=== PATIENT | male | born 1985 | race African-American/Black ===

== ENCOUNTER 2017-03-31 12:17 | Emergency (ER) | payer MEDICAID ==
[~2017-03-31] VITALS: Ht 190.5 cm; Wt 118.0 kg
[~2017-03-31 12:17] MED LIST: GABA-531 PO; INSU3INS6 SUBCUT; LISI-604 PO; METF500T4 PO; rocephin IV
[2017-03-31 12:24] VITALS: BP 165/92
== END 2017-03-31 19:30 | disposition left against medical advice (07) ==
LOC: ER 12:34
DX: Z53.21 Procedure and treatment not carried out due to patient leaving prior to being seen by health care provider (principal); E11.9 Type 2 diabetes mellitus without complications; I10 Essential (primary) hypertension
CPT/HCPCS: 82962

== ENCOUNTER 2019-04-18 08:03 | Inpatient (IN) | payer MEDICARE, MEDICAID ==
[~2019-04-18] VITALS: Ht 175.3 cm; Wt 112.0 kg
[~2019-04-18 08:03] MED LIST changes: +METF-414 PO; -METF500T4 PO
[2019-04-18] MEDS ORDERED: ACETAMINOPHEN 325MG TABLET PO STA (08:31)
[2019-04-18] MEDS ORDERED: SODIUM CHLORIDE 0.9% 1000ML BAG (SEPSIS BOLUS) IV ONE (08:45)
[2019-04-18] MEDS ORDERED: VANCOMYCIN 1 G PREMIX 200 ML IV ONE (08:45)
[2019-04-18] MEDS ORDERED: PIPERACILLIN/TAZ 3.375G PREMIX 50 ML IV ONE (08:45)
[2019-04-18 08:56] LABS: HEMATOCRIT. 23.3 % (42.0-52.0); HEMOGLOBIN. 7.7 g/dL (14.0-18.0); MEAN CORPUSCULAR HEMOGLOBIN 26.8 pg (28.0-32.0); MEAN CORPUSCULAR VOLUME 80.7 fL (80.0-94.0); MEAN PLATELET VOLUME 8.2 fl (7.4-10.4); PLATELET 371 x1000/uL (130-400); RED BLOOD CELL COUNT 2.88 mill/uL (4.7-6.1); RED CELL DISTRIBUTION WIDTH 16.3 % (11.6-14.6)
[2019-04-18 08:58] LABS: CHLORIDE 105 mEq/L (98-107)
[2019-04-18] MEDS ORDERED: ACETAMINOPHEN 650MG/20.3ML UDC PO ONE (09:00)
[2019-04-18] MEDS ORDERED: MORPHINE SULFATE 4 MG/ML CPJ (NOT FOR IM USE) IV ONE ×2 (09:00→13:30)
[2019-04-18] MEDS ORDERED: ONDANSETRON HCL 4MG/2ML INJ IV ONE (09:00)
[2019-04-18 09:01] LABS: INR 1.3; PROTHROMBIN TIME 13.4 sec (9.6-11.0)
[2019-04-18 09:31] LABS: PLATELET ESTIMATE NORMAL
[2019-04-18 11:28] LABS: CLARITY URINE CLEAR (CLEAR); COLOR URINE YELLOW (YELLOW); KETONES URINE NEGATIVE (NEGATIVE); LEUKOCYTE ESTERASE URINE NEGATIVE (NEGATIVE); NITRITE URINE NEGATIVE (NEGATIVE); OCCULT BLOOD URINE 3+ (NEGATIVE); PH URINE 5.5 (4.5-8.0); PROTEIN URINE 3+ (NEGATIVE); UROBILINOGEN URINE 0.2 E.U./dL (0.2-1.0)
[2019-04-18] MEDS ORDERED: DOCUSATE SODIUM 100MG CAPSULE PO PRN (16:00)
[2019-04-18] MEDS ORDERED: ACETAMINOPHEN 325MG TABLET PO PRN (16:00)
[2019-04-18] MEDS ORDERED: GUAIFENESIN 200MG/10ML SUGAR FREE UDC PO PRN (16:00)
[2019-04-18] MEDS ORDERED: ACETAMINOPHEN 650MG SUPP PR PRN (16:00)
[2019-04-18] MEDS ORDERED: MAGNESIUM/ALUMINUM HYDROXIDE/SIMETHICONE 30ML UDC PO PRN (16:00)
[2019-04-18] MEDS ORDERED: PIPERACILLIN/TAZ 3.375G PREMIX 50 ML IV SCH (16:00)
[2019-04-18] MEDS ORDERED: NA PHOS,M-B/NA PHOS,DI-BA ENEMA 118ML PR PRN (16:00)
[2019-04-18] MEDS: DIPHENHYDRAMINE 50MG/ML VIAL IV PRN ×2 (16:59→21:03)
[2019-04-18] MEDS: ONDANSETRON HCL 4MG/2ML INJ IV PRN (16:59)
[2019-04-18] MEDS ORDERED: PIPERACILLIN/TAZ 3.375G PREMIX 50 ML IV NR (17:15)
[2019-04-18] MEDS ORDERED: MORPHINE SULFATE 2 MG/ML CPJ (NOT FOR IM USE) IV PRN (18:11)
[2019-04-18] MEDS ORDERED: HYDRALAZINE 20MG/ML VIAL IV PRN (18:12)
[2019-04-18] MEDS: METOCLOPRAMIDE HCL 10MG/2ML VIAL IV SCH (18:20)
[2019-04-18] MEDS: MORPHINE SULFATE 2 MG/ML CPJ (NOT FOR IM USE) IV PRN (21:03)
[2019-04-18] MEDS: CLONIDINE 0.1MG TABLET PO PRN (21:50)
[2019-04-18] MEDS ORDERED: LABETALOL 5MG/ML SYR 20 MG/4 ML SYRINGE IV PRN (23:30)
[2019-04-19] MEDS ORDERED: LABETALOL HCL 20MG/4ML CARPUJECT IV PRN (01:00)
[2019-04-19 03:40] VITALS: BP 181/103
[2019-04-19] MEDS: HYDRALAZINE 20MG/ML VIAL IV PRN (04:13)
[2019-04-19] MEDS: DIPHENHYDRAMINE 50MG/ML VIAL IV PRN ×3 (04:32→18:45)
[2019-04-19] MEDS: MORPHINE SULFATE 2 MG/ML CPJ (NOT FOR IM USE) IV PRN ×3 (04:33→18:39)
[2019-04-19] MEDS ORDERED: DEXTROSE 50% WATER 50ML SYRINGE IV PRN (05:00)
[2019-04-19] MEDS: SODIUM CHLORIDE 0.9% INJ 3ML FLUSH IVF SCH ×3 (06:00→21:46)
[2019-04-19] MEDS: PIPERACILLIN/TAZOBACTAM 3.375 G in DEXT 5% WATER 100 ML IV SCH ×3 (06:40→21:36)
[2019-04-19] MEDS: BLOOD SUGAR DIAGNOSTIC STRIP TEST SCH ×4 (06:40→21:46)
[2019-04-19] MEDS: METOCLOPRAMIDE HCL 10MG/2ML VIAL IV SCH ×3 (06:40→17:58)
[2019-04-19] MEDS: SODIUM CHLORIDE 0.45% 1,000 ML IV SCH ×2 (06:40→17:58)
[2019-04-19] MEDS: INSULIN LISPRO 100 UNITS/ML SUBCUT SCH ×4 (06:59→21:00)
[2019-04-19 08:00] VITALS: BP 153/91
[2019-04-19] MEDS ORDERED: VANCOMYCIN 1250MG in DEXTROSE 5% WATER 250ML IV SCH (08:00)
[2019-04-19] MEDS: FAMOTIDINE 20MG/2ML VIAL IV SCH (08:57)
[2019-04-19] MEDS: HYDROCODONE/ACETAMINOPHEN 5/325MG TABLET PO PRN ×3 (08:58→21:46)
[2019-04-19] MEDS ORDERED: VANCOMYCIN 1500MG in DEXTROSE 5% WATER 250ML IV SCH (10:00)
[2019-04-19] MEDS ORDERED: ALTEPLASE 2MG/VIAL ITC ONE (11:00)
[2019-04-19 11:56] LABS: BASOPHILS % 0.6 % (0.0-2.0); EOSINOPHILS % 1.1 % (0.0-5.0); HEMATOCRIT. 21.1 % (42.0-52.0); HEMOGLOBIN. 7.2 g/dL (14.0-18.0); LYMPHOCYTES % 10.3 % (20.0-50.0); MEAN CORPUSCULAR HEMOGLOBIN 27.4 pg (28.0-32.0); MEAN CORPUSCULAR VOLUME 80.4 fL (80.0-94.0); MEAN PLATELET VOLUME 7.7 fl (7.4-10.4); MONOCYTES % 10.1 % (2.0-8.0); NEUTROPHILS % 77.9 % (40.0-76.0); PLATELET 312 x1000/uL (130-400); RED BLOOD CELL COUNT 2.62 mill/uL (4.7-6.1); RED CELL DISTRIBUTION WIDTH 16.4 % (11.6-14.6)
[2019-04-19 12:00] VITALS: BP 155/88
[2019-04-19 12:04] LABS: CHLORIDE 108 mEq/L (98-107)
[2019-04-19 12:12] LABS: HDL CHOLESTEROL 20 mg/dL (40-59)
[2019-04-19 12:13] LABS: PHOSPHORUS 5.1 mg/dL (2.5-4.9)
[2019-04-19 12:14] LABS: LDL CHOLESTEROL 33 mg/dL (5-100)
[2019-04-19 16:00] VITALS: BP 169/93
[2019-04-19] MEDS: ONDANSETRON HCL 4MG/2ML INJ IV PRN (17:09)
[2019-04-19 20:00] VITALS: BP 142/79
[2019-04-20] VITALS (10 sets, daily range): BP systolic 134–198; BP diastolic 71–114
[2019-04-20] MEDS: METOCLOPRAMIDE HCL 10MG/2ML VIAL IV SCH ×5 (00:54→23:33)
[2019-04-20] MEDS: ONDANSETRON HCL 4MG/2ML INJ IV PRN (04:18)
[2019-04-20] MEDS: CLONIDINE 0.1MG TABLET PO PRN ×2 (04:19→14:08)
[2019-04-20] MEDS: MORPHINE SULFATE 2 MG/ML CPJ (NOT FOR IM USE) IV PRN ×5 (04:19→23:49)
[2019-04-20] MEDS: DIPHENHYDRAMINE 50MG/ML VIAL IV PRN ×4 (04:32→23:49)
[2019-04-20] MEDS: PIPERACILLIN/TAZOBACTAM 3.375 G in DEXT 5% WATER 100 ML IV SCH ×3 (05:32→23:33)
[2019-04-20] MEDS: SODIUM CHLORIDE 0.9% INJ 3ML FLUSH IVF SCH ×3 (05:32→23:34)
[2019-04-20] MEDS: INSULIN LISPRO 100 UNITS/ML SUBCUT SCH ×4 (06:55→20:50)
[2019-04-20] MEDS: BLOOD SUGAR DIAGNOSTIC STRIP TEST SCH ×4 (06:55→21:00)
[2019-04-20] MEDS: FAMOTIDINE 20MG/2ML VIAL IV SCH (08:36)
[2019-04-20] MEDS: HYDRALAZINE 20MG/ML VIAL IV PRN ×2 (08:38→23:49)
[2019-04-20] MEDS: SODIUM CHLORIDE 0.45% 1,000 ML IV SCH ×2 (08:42→23:33)
[2019-04-20 08:49] LABS: BASOPHILS % 0.7 % (0.0-2.0); LYMPHOCYTES % 14.2 % (20.0-50.0); MEAN CORPUSCULAR HEMOGLOBIN 27.4 pg (28.0-32.0); MEAN CORPUSCULAR VOLUME 80.7 fL (80.0-94.0); MEAN PLATELET VOLUME 8.2 fl (7.4-10.4); MONOCYTES % 9.8 % (2.0-8.0); NEUTROPHILS % 72.3 % (40.0-76.0); PLATELET 305 x1000/uL (130-400); RED BLOOD CELL COUNT 2.37 mill/uL (4.7-6.1); RED CELL DISTRIBUTION WIDTH 16.5 % (11.6-14.6)
[2019-04-20 08:52] LABS: HEMATOCRIT. 19.2 % (42.0-52.0); HEMOGLOBIN. 6.5 g/dL (14.0-18.0)
[2019-04-20 16:44] LABS: BASOPHILS % 0.7 % (0.0-2.0); EOSINOPHILS % 3.1 % (0.0-5.0); LYMPHOCYTES % 17.3 % (20.0-50.0); MEAN CORPUSCULAR HEMOGLOBIN 26.9 pg (28.0-32.0); MEAN CORPUSCULAR VOLUME 79.7 fL (80.0-94.0); MEAN PLATELET VOLUME 7.6 fl (7.4-10.4); MONOCYTES % 9.9 % (2.0-8.0); PLATELET 313 x1000/uL (130-400); RED BLOOD CELL COUNT 2.42 mill/uL (4.7-6.1); RED CELL DISTRIBUTION WIDTH 16.4 % (11.6-14.6)
[2019-04-20 16:47] LABS: HEMOGLOBIN. 6.5 g/dL (14.0-18.0)
[2019-04-20 16:48] LABS: HEMATOCRIT. 19.3 % (42.0-52.0)
[2019-04-20 16:50] LABS: CHLORIDE 106 mEq/L (98-107)
[2019-04-21] VITALS: BP 182/104
[2019-04-21 04:00] VITALS: BP 183/102
[2019-04-21] MEDS: PIPERACILLIN/TAZOBACTAM 3.375 G in DEXT 5% WATER 100 ML IV SCH ×2 (05:34→13:39)
[2019-04-21] MEDS: METOCLOPRAMIDE HCL 10MG/2ML VIAL IV SCH ×4 (05:34→23:40)
[2019-04-21] MEDS: HYDRALAZINE 20MG/ML VIAL IV PRN ×4 (05:34→23:49)
[2019-04-21] MEDS: MORPHINE SULFATE 2 MG/ML CPJ (NOT FOR IM USE) IV PRN ×5 (05:35→23:49)
[2019-04-21] MEDS: DIPHENHYDRAMINE 50MG/ML VIAL IV PRN ×3 (05:35→19:59)
[2019-04-21] MEDS: SODIUM CHLORIDE 0.9% INJ 3ML FLUSH IVF SCH ×3 (05:35→21:32)
[2019-04-21] MEDS: INSULIN LISPRO 100 UNITS/ML SUBCUT SCH ×4 (07:06→21:34)
[2019-04-21] MEDS: BLOOD SUGAR DIAGNOSTIC STRIP TEST SCH ×4 (07:06→20:05)
[2019-04-21 08:00] VITALS: BP 193/109
[2019-04-21] MEDS: FAMOTIDINE 20MG/2ML VIAL IV SCH (09:13)
[2019-04-21] MEDS: SODIUM CHLORIDE 0.45% 1,000 ML IV SCH ×2 (09:42→23:41)
[2019-04-21] MEDS: CLONIDINE 0.1MG TABLET PO PRN (10:18)
[2019-04-21 10:42] LABS: HEMATOCRIT 22.6 % (42.0-52.0); HEMOGLOBIN 7.7 g/dL (14.0-18.0); MEAN CORPUSCULAR HEMOGLOBIN 27.7 pg (28.0-32.0); MEAN CORPUSCULAR VOLUME 81.7 fL (80.0-94.0); PLATELET 318 x1000/uL (130-400); RED BLOOD CELL COUNT 2.77 mill/uL (4.7-6.1); RED CELL DISTRIBUTION WIDTH 16.1 % (11.6-14.6)
[2019-04-21 10:56] LABS: INR 1.1; PROTHROMBIN TIME 10.8 sec (9.6-11.0)
[2019-04-21 12:00] VITALS: BP 162/78
[2019-04-21] MEDS ORDERED: HYDRALAZINE HCL 50MG TABLET PO SCH (14:00)
[2019-04-21] MEDS: HYDROCODONE/ACETAMINOPHEN 5/325MG TABLET PO PRN (15:18)
[2019-04-21] MEDS: HYDRALAZINE HCL 50MG TABLET PO PRN (15:18)
[2019-04-21] MEDS ORDERED: VANCOMYCIN 1 G PREMIX 200 ML IV NR (16:00)
[2019-04-21] MEDS ORDERED: MEROPENEM 1000MG in NORMAL SALINE 100ML IV SCH (17:00)
[2019-04-21] MEDS: MEROPENEM 1000MG in NORMAL SALINE 100ML IV SCH (18:35)
[2019-04-21 20:00] VITALS: BP 144/81
[2019-04-22] VITALS: BP 167/92
[2019-04-22] MEDS: DIPHENHYDRAMINE 50MG/ML VIAL IV PRN ×3 (03:19→13:42)
[2019-04-22 04:00] VITALS: BP 173/89
[2019-04-22] MEDS: SODIUM CHLORIDE 0.9% INJ 3ML FLUSH IVF SCH (05:12)
[2019-04-22] MEDS: MORPHINE SULFATE 2 MG/ML CPJ (NOT FOR IM USE) IV PRN ×3 (05:14→13:42)
[2019-04-22] MEDS: METOCLOPRAMIDE HCL 10MG/2ML VIAL IV SCH ×2 (05:14→12:36)
[2019-04-22] MEDS: HYDRALAZINE HCL 50MG TABLET PO PRN (05:15)
[2019-04-22] MEDS: BLOOD SUGAR DIAGNOSTIC STRIP TEST SCH ×2 (06:29→12:31)
[2019-04-22] MEDS: INSULIN LISPRO 100 UNITS/ML SUBCUT SCH ×2 (07:50→12:31)
[2019-04-22 08:00] VITALS: BP 175/99
[2019-04-22] MEDS: MEROPENEM 1000MG in NORMAL SALINE 100ML IV SCH (09:16)
[2019-04-22] MEDS: FAMOTIDINE 20MG/2ML VIAL IV SCH (09:16)
[2019-04-22 12:00] VITALS: BP 160/102
[2019-04-22] MEDS: SODIUM CHLORIDE 0.45% 1,000 ML IV SCH (13:00)
[2019-04-22 13:53] VITALS: BP 125/61
== END 2019-04-22 15:27 | disposition home or self-care (01) | DRG 853 ==
LOC: ER 08:03 → EDBEDREQTM 13:37 → EDBEDREQ 13:37 → ENRESERV 04-19 02:54 → 8WST 04-19 03:51 → 6WST 04-21 16:56
PROVIDERS: ADMIT Family Medicine; ATTEND Family Medicine
PROC: 0QBK0ZZ Excision of Left Fibula, Open Approach (ICD-10-PCS; principal; 2019-04-21)
PROC: 0QBL0ZZ Excision of Right Tarsal, Open Approach (ICD-10-PCS; 2019-04-21)
PROC: 0QBM0ZZ Excision of Left Tarsal, Open Approach (ICD-10-PCS; 2019-04-21)
PROC: 30233N1 Transfusion of Nonautologous Red Blood Cells into Peripheral Vein, Percutaneous Approach (ICD-10-PCS; 2019-04-21)
DX: A41.50 Gram-negative sepsis, unspecified (principal); E43 Unspecified severe protein-calorie malnutrition; M86.9 Osteomyelitis, unspecified; L02.612 Cutaneous abscess of left foot; L97.329 Non-pressure chronic ulcer of left ankle with unspecified severity; L97.919 Non-pressure chronic ulcer of unspecified part of right lower leg with unspecified severity; M00.9 Pyogenic arthritis, unspecified; E11.65 Type 2 diabetes mellitus with hyperglycemia; D64.9 Anemia, unspecified; E66.9 Obesity, unspecified; E78.5 Hyperlipidemia, unspecified; I10 Essential (primary) hypertension; E11.69 Type 2 diabetes mellitus with other specified complication; E11.621 Type 2 diabetes mellitus with foot ulcer; L97.509 Non-pressure chronic ulcer of other part of unspecified foot with unspecified severity; E11.622 Type 2 diabetes mellitus with other skin ulcer; L98.499 Non-pressure chronic ulcer of skin of other sites with unspecified severity; E11.42 Type 2 diabetes mellitus with diabetic polyneuropathy; E11.610 Type 2 diabetes mellitus with diabetic neuropathic arthropathy; S91.301A Unspecified open wound, right foot, initial encounter; X58.XXXA Exposure to other specified factors, initial encounter; E66.01 Morbid (severe) obesity due to excess calories; S91.302A Unspecified open wound, left foot, initial encounter; Z68.36 Body mass index [BMI] 36.0-36.9, adult; Z79.4 Long term (current) use of insulin; Z91.19 Patient's noncompliance with other medical treatment and regimen; Y93.89 Activity, other specified; Y92.89 Other specified places as the place of occurrence of the external cause; Y99.8 Other external cause status; Z79.899 Other long term (current) drug therapy
CPT/HCPCS: 36415; 71045; 73620; 73700; 74018; 76770; 80048; 80053; 80061; 80202; 81003; 82962; 83036; 83605; 84100; 84145; 84484; 85025; 85027; 85384; 85651; 86140; 86850; 86900; 86920; 87070; 87075; 87077; 87186; 93005; 99291; J0360; J1200; J1815; J2185; J2270; J2405; J2543; J2765; J3370; J3490; J7030; J7060; P9016

== ENCOUNTER 2020-08-22 16:17 | Emergency (ER) | payer MEDICARE, MEDICAID ==
[~2020-08-22] VITALS: Ht 160 cm; Wt 92.0 kg
[~2020-08-22 16:17] MED LIST changes: -GABA-531 PO; +GABA-532 PO; -LISI-604 PO; +LISI20TA31 PO
[2020-08-22] MEDS ORDERED: HYDROCODONE/ACETAMINOPHEN 5/325MG TABLET PO STA (16:46)
[2020-08-22] MEDS ORDERED: SODIUM CHLORIDE 0.9% 1,000 ML IV ONE (17:00)
[2020-08-22] MEDS ORDERED: CLONIDINE 0.1MG TABLET PO ONE (17:00)
[2020-08-22] MEDS ORDERED: KETOROLAC 15MG/ML VIAL IV ONE (18:00)
[2020-08-22] MEDS ORDERED: HYDRALAZINE 20MG/ML VIAL IV ONE (18:00)
[2020-08-22 19:10] LABS: BASOPHILS % 0.6 % (0.0-2.0); CHLORIDE 105 mEq/L (98-107); EOSINOPHILS % 3.3 % (0.0-5.0); HEMATOCRIT. 35.6 % (42.0-52.0); HEMOGLOBIN. 11.5 g/dL (14.0-18.0); LYMPHOCYTES % 22.4 % (20.0-50.0); MEAN CORPUSCULAR HEMOGLOBIN 27.3 pg (28.0-32.0); MEAN CORPUSCULAR VOLUME 84.3 fL (80.0-94.0); MEAN PLATELET VOLUME 9.7 fl (7.4-10.4); NEUTROPHILS % 64.7 % (40.0-76.0); PLATELET 237 x1000/uL (130-400); RED BLOOD CELL COUNT 4.22 mill/uL (4.7-6.1); RED CELL DISTRIBUTION WIDTH 17.1 % (11.6-14.6)
[2020-08-22 19:15] LABS: BETA HYDROXYBUTYRATE 0.1 mMol/L (0.0-0.3)
[2020-08-22] MEDS ORDERED: LABETALOL 5MG/ML SYR 20 MG/4 ML SYRINGE IV ONE (19:30)
[2020-08-22] MEDS ORDERED: INSULIN REGULAR (HUMULIN R) UD 100 UNITS/ML SYR IV ONE (19:30)
[2020-08-22] MEDS ORDERED: INSULIN REGULAR (HUMULIN R) 300UNITS/3ML VIAL IV NR (20:15)
[2020-08-22 21:00] VITALS: BP 145/90
== END 2020-08-22 21:53 | disposition home or self-care (01) ==
LOC: ER 16:17
DX: E11.65 Type 2 diabetes mellitus with hyperglycemia (principal); R56.9 Unspecified convulsions; M79.604 Pain in right leg; R45.1 Restlessness and agitation; E87.1 Hypo-osmolality and hyponatremia; R00.0 Tachycardia, unspecified; I44.4 Left anterior fascicular block; D64.9 Anemia, unspecified; D72.829 Elevated white blood cell count, unspecified; I12.9 Hypertensive chronic kidney disease with stage 1 through stage 4 chronic kidney disease, or unspecified chronic kidney disease; E11.22 Type 2 diabetes mellitus with diabetic chronic kidney disease; N18.9 Chronic kidney disease, unspecified; Z89.511 Acquired absence of right leg below knee; Z89.512 Acquired absence of left leg below knee; Z79.4 Long term (current) use of insulin
CPT/HCPCS: 36415; 70450; 71045; 80053; 82010; 82962; 85025; 96361; 96374; 96375; 99285; J0360; J1815; J1885; J3490; J7030; J7040

== ENCOUNTER 2020-09-15 14:28 | Emergency (ER) | payer MEDICAID, MEDICARE ==
[~2020-09-15] VITALS: Ht 172.7 cm; Wt 99.0 kg
[2020-09-15 14:59] VITALS: BP 188/136
[2020-09-15] MEDS ORDERED: METOCLOPRAMIDE HCL 10MG/2ML VIAL IM ONE (16:15)
[2020-09-15 16:50] LABS: BASOPHILS % 0.3 % (0.0-2.0); EOSINOPHILS % 1.7 % (0.0-5.0); HEMATOCRIT. 34.6 % (42.0-52.0); HEMOGLOBIN. 11.4 g/dL (14.0-18.0); LYMPHOCYTES % 24.7 % (20.0-50.0); MEAN CORPUSCULAR HEMOGLOBIN 28.1 pg (28.0-32.0); MEAN PLATELET VOLUME 9.7 fl (7.4-10.4); MONOCYTES % 8.2 % (2.0-8.0); NEUTROPHILS % 65.1 % (40.0-76.0); PLATELET 184 x1000/uL (130-400); RED BLOOD CELL COUNT 4.07 mill/uL (4.7-6.1)
[2020-09-15 16:57] LABS: CHLORIDE 111 mEq/L (98-107)
== END 2020-09-15 17:51 | disposition left against medical advice (07) ==
LOC: ER 14:28
DX: E11.22 Type 2 diabetes mellitus with diabetic chronic kidney disease (principal); E11.43 Type 2 diabetes mellitus with diabetic autonomic (poly)neuropathy; K31.84 Gastroparesis; I12.0 Hypertensive chronic kidney disease with stage 5 chronic kidney disease or end stage renal disease; N18.6 End stage renal disease; E87.2 Acidosis; Z89.512 Acquired absence of left leg below knee; Z89.511 Acquired absence of right leg below knee; Z79.4 Long term (current) use of insulin
CPT/HCPCS: 36415; 80048; 80076; 83690; 84484; 85025; 96372; 99283; J2765

== ENCOUNTER 2021-05-11 14:35 | Inpatient (IN) | payer MEDICAID, MEDICARE, OTHER ==
[~2021-05-11] VITALS: Ht 182.9 cm; Wt 137.9 kg
[~2021-05-11 14:35] MED LIST changes: -METF-414 PO
[2021-05-11] MEDS ORDERED: SODIUM CHLORIDE 0.9% 1,000 ML IV ONE ×3 (15:00→17:00)
[2021-05-11] MEDS ORDERED: DIPHENHYDRAMINE 50MG CAPSULE PO ONE (15:00)
[2021-05-11] MEDS ORDERED: ONDANSETRON HCL 4MG/2ML INJ IV ONE (15:15)
[2021-05-11] MEDS ORDERED: MORPHINE SULFATE 4 MG/ML CPJ (NOT FOR IM USE) IV STA ×2 (15:37→19:16)
[2021-05-11] MEDS ORDERED: ONDANSETRON HCL 4MG/2ML INJ IV STA ×2 (15:37→19:16)
[2021-05-11 16:06] LABS: CHLORIDE 94 mEq/L (98-107)
[2021-05-11 16:07] LABS: BASOPHILS % 0.5 % (0.0-2.0); EOSINOPHILS % 1.1 % (0.0-5.0); HEMATOCRIT. 33.7 % (42.0-52.0); HEMOGLOBIN. 11.2 g/dL (14.0-18.0); LYMPHOCYTES % 14.8 % (20.0-50.0); MEAN CORPUSCULAR HEMOGLOBIN 28.3 pg (28.0-32.0); MEAN CORPUSCULAR VOLUME 85.1 fL (80.0-94.0); MEAN PLATELET VOLUME 9.4 fl (7.4-10.4); MONOCYTES % 7.1 % (2.0-8.0); NEUTROPHILS % 76.5 % (40.0-76.0); PLATELET 240 x1000/uL (130-400); RED BLOOD CELL COUNT 3.96 mill/uL (4.7-6.1); RED CELL DISTRIBUTION WIDTH 13.7 % (11.6-14.6)
[2021-05-11 16:10] LABS: ETHANOL BLOOD < 10 mg/dL
[2021-05-11 16:12] LABS: BETA HYDROXYBUTYRATE 2.8 mMol/L (0.0-0.3)
[2021-05-11] MEDS ORDERED: LORAZEPAM 2MG/ML CPJ IV ONE (16:15)
[2021-05-11] MEDS ORDERED: VANCOMYCIN 1G PREMIX 200 ML IV ONE (17:00)
[2021-05-11] MEDS ORDERED: PIPERACILLIN/TAZ 3.375G PREMIX 50 ML IV ONE (17:00)
[2021-05-11 17:26] LABS: CLARITY URINE CLOUDY (CLEAR); COLOR URINE YELLOW (YELLOW); KETONES URINE TRACE (NEGATIVE); LEUKOCYTE ESTERASE URINE 1+ (NEGATIVE); NITRITE URINE NEGATIVE (NEGATIVE); OCCULT BLOOD URINE 1+ (NEGATIVE); PROTEIN URINE 3+ (NEGATIVE); SPECIFIC GRAVITY URINE 1.018 (1.005-1.030); UROBILINOGEN URINE 0.2 E.U./dL (0.2-1.0)
[2021-05-11 17:35] LABS: *AMPHETAMINES SCREEN URINE NEGATIVE (NEGATIVE); *BARBITURATES SCREEN URINE NEGATIVE (NEGATIVE); *BENZODIAZEPINES SCREEN URINE NEGATIVE (NEGATIVE); *COCAINE SCREEN URINE NEGATIVE (NEGATIVE); METHADONE URINE SCREEN NEGATIVE (NEGATIVE)
[2021-05-11 17:36] LABS: CANNABINOID URINE SCREEN NEGATIVE (NEGATIVE); OPIATES URINE SCREEN NEGATIVE (NEGATIVE); PHENCYCLIDINE URINE SCREEN NEGATIVE (NEGATIVE)
[2021-05-11] MEDS ORDERED: INSULIN REGULAR (HUMULIN R) 300UNITS/3ML VIAL SUBCUT ONE (19:00)
[2021-05-12] VITALS (42 sets, daily range): BP systolic 102–184; BP diastolic 61–113
[2021-05-12] MEDS: HYDRALAZINE 20MG/ML VIAL IV PRN ×4 (01:23→18:17)
[2021-05-12] MEDS: DIPHENHYDRAMINE 50MG/ML VIAL IV PRN ×2 (02:13→11:48)
[2021-05-12] MEDS: MORPHINE SULFATE 2 MG/ML CPJ (NOT FOR IM USE) IV PRN ×3 (07:08→18:30)
[2021-05-12] MEDS ORDERED: NALOXONE HCL 0.4MG/ML VIAL IV PRN (09:00)
[2021-05-12] MEDS ORDERED: INSULIN LISPRO 100 UNITS/ML SUBCUT NR (09:45)
[2021-05-12] MEDS ORDERED: DEXTROSE 50% WATER 50ML SYRINGE IV PRN ×3 (10:00→12:45)
[2021-05-12] MEDS ORDERED: BLOOD SUGAR DIAGNOSTIC STRIP TEST SCH (10:03)
[2021-05-12] MEDS ORDERED: INSULIN GLARGINE UD 100 UNITS/ML SYR SUBCUT NR (10:30)
[2021-05-12] MEDS ORDERED: LIDOCAINE HCL/PF 1% 2ML VIAL ONE (11:59)
[2021-05-12] MEDS ORDERED: INSULIN LISPRO 100 UNITS/ML SUBCUT SCH (12:00)
[2021-05-12] MEDS ORDERED: INSULIN REGULAR (DRIP) 100 UNITS in SODIUM CHLORIDE 0.9% 99 ML IV PRN ×2 (12:00→12:45)
[2021-05-12] MEDS ORDERED: SODIUM CHLORIDE 0.9% 1,000 ML IV SCH (12:00)
[2021-05-12 12:29] LABS: HEMATOCRIT. 36.3 % (42.0-52.0); HEMOGLOBIN. 11.5 g/dL (14.0-18.0); MEAN CORPUSCULAR HEMOGLOBIN 26.8 pg (28.0-32.0); MEAN CORPUSCULAR VOLUME 84.7 fL (80.0-94.0); MEAN PLATELET VOLUME 9.5 fl (7.4-10.4); PLATELET 281 x1000/uL (130-400); RED BLOOD CELL COUNT 4.28 mill/uL (4.7-6.1); RED CELL DISTRIBUTION WIDTH 14.5 % (11.6-14.6)
[2021-05-12] MEDS ORDERED: ONDANSETRON HCL 4MG/2ML INJ ONE (12:57)
[2021-05-12] MEDS ORDERED: INSULIN REGULAR 100U/100ML PMX 100 ML IV SCH ×3 (13:00→14:45)
[2021-05-12] MEDS: BLOOD SUGAR DIAGNOSTIC STRIP TEST SCH ×11 (13:00→21:30)
[2021-05-12 13:05] LABS: CHLORIDE 93 mEq/L (98-107); PLATELET ESTIMATE NORMAL
[2021-05-12 13:13] LABS: BG BASE EXCESS 1.5 mmol/L (-2.0-2.0); BG CARBOXYHEMOGLOBIN 0.2 % (0.5-1.5); BG FRACTION INSPIRED OXYGEN 21; BG HCO3 ACT 26.5 mmol/L (22.0-26.0); BG METHEMOGLOBIN 0.3 % (0.0-1.5); BG OXYGEN SATURATION 89.9 % (92.0-98.5); BG OXYHEMOGLOBIN 89.5 % (94.0-97.0); BG PCO2 43.5 mmHg (35.0-45.0); BG PH 7.403 (7.350-7.450); BG PO2 59.7 mmHg (75.0-100.0); BG SAMPLE SITE RIGHT RADIAL; BG TOTAL HEMOGLOBIN 11.1 g/dL (12.0-18.0); BG VENT MODE ROOM AIR
[2021-05-12] MEDS: ONDANSETRON HCL 4MG/2ML INJ IV PRN ×2 (13:36→22:50)
[2021-05-12] MEDS ORDERED: ACETAMINOPHEN 650MG SUPP PR PRN (16:00)
[2021-05-12] MEDS ORDERED: DEXT 5%/0.45% NACL 1000ML 1,000 ML IV SCH (17:00)
[2021-05-12] MEDS ORDERED: ENOXAPARIN 30MG/0.3ML SYR SUBCUT SCH (17:00)
[2021-05-12 17:23] LABS: CHLORIDE 98 mEq/L (98-107)
[2021-05-12 17:31] LABS: PHOSPHORUS 3.2 mg/dL (2.5-4.9)
[2021-05-12 17:33] LABS: CREATINE KINASE 59 IU/L (39-308)
[2021-05-12 17:50] LABS: CREATINE KINASE MB FRACTION < 1.0 ng/mL (0.5-3.6)
[2021-05-12 17:56] LABS: HEPATITIS B SURFACE ANTIGEN NEGATIVE
[2021-05-12] MEDS ORDERED: VANCOMYCIN 2,000 MG in DEXT 5% WATER 500 ML IV NR ×2 (18:00→20:00)
[2021-05-12] MEDS ORDERED: PIPERACILLIN/TAZOBACTAM 3.375 G in DEXTROSE 5% WATER 50 ML IV SCH (18:00)
[2021-05-12] MEDS: FAMOTIDINE 20MG/2ML VIAL IV SCH (18:15)
[2021-05-12] MEDS: LEVETIRACETAM 500MG PREMIX 100 ML IV SCH (21:00)
[2021-05-12] MEDS: PIPERACILLIN/TAZOBACTAM 3.375 G in DEXTROSE 5% WATER 50 ML IV SCH (21:57)
[2021-05-12] MEDS: INSULIN LISPRO 100 UNITS/ML SUBCUT SCH (22:01)
[2021-05-12] MEDS ORDERED: SODIUM CHLORIDE 0.45% 1,000 ML IV ONE (22:15)
[2021-05-13] VITALS (29 sets, daily range): BP systolic 128–177; BP diastolic 71–99
[2021-05-13] MEDS: BLOOD SUGAR DIAGNOSTIC STRIP TEST SCH ×4 (05:38→21:15)
[2021-05-13] MEDS: DIPHENHYDRAMINE 50MG/ML VIAL IV PRN ×3 (05:53→20:09)
[2021-05-13] MEDS: MORPHINE SULFATE 2 MG/ML CPJ (NOT FOR IM USE) IV PRN ×4 (05:54→22:42)
[2021-05-13] MEDS: INSULIN LISPRO 100 UNITS/ML SUBCUT SCH ×5 (06:27→23:18)
[2021-05-13] MEDS ORDERED: DEXTROSE 50% WATER 50ML SYRINGE IV PRN (08:15)
[2021-05-13] MEDS: FAMOTIDINE 20MG/2ML VIAL IV SCH (09:02)
[2021-05-13] MEDS: PIPERACILLIN/TAZOBACTAM 3.375 G in DEXTROSE 5% WATER 50 ML IV SCH ×2 (09:02→21:14)
[2021-05-13] MEDS: LEVETIRACETAM 500MG PREMIX 100 ML IV SCH ×2 (09:02→21:14)
[2021-05-13] MEDS: AMLODIPINE 5MG TABLET PO SCH ×2 (11:28→21:14)
[2021-05-13] MEDS: SODIUM CHLORIDE 0.9% 1,000 ML IV SCH (16:38)
[2021-05-13] MEDS: ENOXAPARIN 40MG/0.4ML SYR SUBCUT SCH (16:57)
[2021-05-13] MEDS: LINEZOLID 600 MG PREMIX 300 ML IV SCH (16:58)
[2021-05-13] MEDS: INSULIN GLARGINE UD 100 UNITS/ML SYR SUBCUT SCH (21:13)
[2021-05-13] MEDS: HYDRALAZINE 20MG/ML VIAL IV PRN (21:15)
[2021-05-14] VITALS: BP 137/80
[2021-05-14 04:30] VITALS: BP 151/94
[2021-05-14] MEDS: DIPHENHYDRAMINE 50MG/ML VIAL IV PRN ×3 (05:48→19:41)
[2021-05-14] MEDS: LINEZOLID 600 MG PREMIX 300 ML IV SCH (05:48)
[2021-05-14] MEDS: SODIUM CHLORIDE 0.9% 1,000 ML IV SCH (05:59)
[2021-05-14] MEDS: MORPHINE SULFATE 2 MG/ML CPJ (NOT FOR IM USE) IV PRN (05:59)
[2021-05-14] MEDS: BLOOD SUGAR DIAGNOSTIC STRIP TEST SCH ×4 (06:44→20:41)
[2021-05-14] MEDS: INSULIN LISPRO 100 UNITS/ML SUBCUT SCH ×7 (06:54→20:57)
[2021-05-14 07:49] VITALS: BP 156/70
[2021-05-14 08:29] LABS: BASOPHILS % 0.4 % (0.0-2.0); EOSINOPHILS % 1.4 % (0.0-5.0); HEMATOCRIT. 31.1 % (42.0-52.0); HEMOGLOBIN. 10.3 g/dL (14.0-18.0); LYMPHOCYTES % 15.5 % (20.0-50.0); MEAN CORPUSCULAR HEMOGLOBIN 28.3 pg (28.0-32.0); MEAN CORPUSCULAR VOLUME 85.4 fL (80.0-94.0); MEAN PLATELET VOLUME 9.1 fl (7.4-10.4); MONOCYTES % 11.9 % (2.0-8.0); NEUTROPHILS % 70.8 % (40.0-76.0); PLATELET 197 x1000/uL (130-400); RED BLOOD CELL COUNT 3.64 mill/uL (4.7-6.1); RED CELL DISTRIBUTION WIDTH 14.4 % (11.6-14.6)
[2021-05-14] MEDS: AMLODIPINE 5MG TABLET PO SCH ×2 (09:00→20:51)
[2021-05-14] MEDS: FAMOTIDINE 20MG/2ML VIAL IV SCH (09:06)
[2021-05-14] MEDS: LEVETIRACETAM 500MG PREMIX 100 ML IV SCH ×2 (09:06→20:50)
[2021-05-14] MEDS: PIPERACILLIN/TAZOBACTAM 3.375 G in DEXTROSE 5% WATER 50 ML IV SCH ×2 (09:15→20:50)
[2021-05-14] MEDS: MORPHINE SULFATE 4 MG/ML CPJ (NOT FOR IM USE) IV PRN ×3 (09:40→21:10)
[2021-05-14] MEDS: INSULIN GLARGINE UD 100 UNITS/ML SYR SUBCUT SCH ×2 (10:13→22:50)
[2021-05-14 12:00] VITALS: BP 130/94
[2021-05-14] MEDS: METOCLOPRAMIDE HCL 10MG/2ML VIAL IV SCH ×2 (14:12→22:56)
[2021-05-14] MEDS: ENOXAPARIN 40MG/0.4ML SYR SUBCUT SCH (15:22)
[2021-05-14 16:13] VITALS: BP_SYST 130; BP_SYST 142; BP_DIAS 108; BP_DIAS 79
[2021-05-14] MEDS: GABAPENTIN 300MG CAPSULE PO SCH (17:27)
[2021-05-14 20:00] VITALS: BP 145/88
[2021-05-15] VITALS: BP 138/77
[2021-05-15] MEDS: DIPHENHYDRAMINE 50MG/ML VIAL IV PRN ×2 (03:27→10:55)
[2021-05-15] MEDS: MORPHINE SULFATE 4 MG/ML CPJ (NOT FOR IM USE) IV PRN ×2 (03:27→09:32)
[2021-05-15 04:00] VITALS: BP 148/82
[2021-05-15] MEDS: METOCLOPRAMIDE HCL 10MG/2ML VIAL IV SCH ×2 (06:06→13:27)
[2021-05-15] MEDS: BLOOD SUGAR DIAGNOSTIC STRIP TEST SCH ×2 (06:07→11:55)
[2021-05-15 08:05] VITALS: BP 136/94
[2021-05-15] MEDS: GABAPENTIN 300MG CAPSULE PO SCH (09:28)
[2021-05-15] MEDS: AMLODIPINE 5MG TABLET PO SCH (09:29)
[2021-05-15] MEDS: FAMOTIDINE 20MG/2ML VIAL IV SCH (09:29)
[2021-05-15] MEDS: PIPERACILLIN/TAZOBACTAM 3.375 G in DEXTROSE 5% WATER 50 ML IV SCH (09:29)
[2021-05-15] MEDS: LEVETIRACETAM 500MG PREMIX 100 ML IV SCH (09:29)
[2021-05-15] MEDS: INSULIN LISPRO 100 UNITS/ML SUBCUT SCH ×4 (09:30→13:24)
[2021-05-15] MEDS: INSULIN GLARGINE UD 100 UNITS/ML SYR SUBCUT SCH (10:55)
[2021-05-15 12:12] VITALS: BP 146/99
[2021-05-15 13:31] LABS: BASOPHILS % 0.5 % (0.0-2.0); EOSINOPHILS % 2.7 % (0.0-5.0); HEMATOCRIT. 31.2 % (42.0-52.0); HEMOGLOBIN. 10.2 g/dL (14.0-18.0); LYMPHOCYTES % 20.2 % (20.0-50.0); MEAN CORPUSCULAR HEMOGLOBIN 27.9 pg (28.0-32.0); MEAN PLATELET VOLUME 9.1 fl (7.4-10.4); MONOCYTES % 10.3 % (2.0-8.0); NEUTROPHILS % 66.3 % (40.0-76.0); PLATELET 204 x1000/uL (130-400); RED BLOOD CELL COUNT 3.67 mill/uL (4.7-6.1); RED CELL DISTRIBUTION WIDTH 14.1 % (11.6-14.6)
[2021-05-15 13:54] LABS: PROTHROMBIN TIME 10.3 sec (9.6-11.0)
== END 2021-05-15 15:16 | disposition left against medical advice (07) | DRG 871 ==
LOC: ER 14:35 → MICUSO 19:17 → 5WST 05-12 09:52 → MICUSO 05-12 12:14 → 6WST 05-13 18:15
PROVIDERS: ADMIT Internal Medicine; ATTEND Internal Medicine
DX: A41.9 Sepsis, unspecified organism (principal); E11.00 Type 2 diabetes mellitus with hyperosmolarity without nonketotic hyperglycemic-hyperosmolar coma (NKHHC); K85.90 Acute pancreatitis without necrosis or infection, unspecified; N18.6 End stage renal disease; J69.0 Pneumonitis due to inhalation of food and vomit; I12.0 Hypertensive chronic kidney disease with stage 5 chronic kidney disease or end stage renal disease; N39.0 Urinary tract infection, site not specified; N17.9 Acute kidney failure, unspecified; Z68.41 Body mass index [BMI] 40.0-44.9, adult; E66.2 Morbid (severe) obesity with alveolar hypoventilation; E11.65 Type 2 diabetes mellitus with hyperglycemia; D64.9 Anemia, unspecified; E86.0 Dehydration; G40.909 Epilepsy, unspecified, not intractable, without status epilepticus; E11.51 Type 2 diabetes mellitus with diabetic peripheral angiopathy without gangrene; E11.22 Type 2 diabetes mellitus with diabetic chronic kidney disease; R09.02 Hypoxemia; Z53.29 Procedure and treatment not carried out because of patient's decision for other reasons; K76.0 Fatty (change of) liver, not elsewhere classified; Z91.19 Patient's noncompliance with other medical treatment and regimen; Z91.14 Patient's other noncompliance with medication regimen; Z79.899 Other long term (current) drug therapy; Z79.4 Long term (current) use of insulin; Z89.512 Acquired absence of left leg below knee; Z89.511 Acquired absence of right leg below knee; R06.03 Acute respiratory distress
CPT/HCPCS: 36415; 36600; 71045; 76700; 80048; 80053; 80202; 80305; 80320; 81003; 82010; 82375; 82550; 82553; 82570; 82805; 82947; 82962; 83036; 83930; 83970; 84100; 84153; 84156; 84484; 85025; 86705; 86709; 86803; 87340; 87426; 93005; 93306; 99291; J0360; J1200; J1650; J1815; J1953; J2020; J2060; J2270; J2405; J2543; J2765; J3370; J3490; J7030; J7040; J7060; Q0163; G0103; G0480

== ENCOUNTER 2021-09-18 09:18 | Inpatient (IN) | payer MEDICARE, MEDICAID ==
[~2021-09-18] VITALS: Ht 162.6 cm; Wt 84.8 kg
[2021-09-18] MEDS ORDERED: ONDANSETRON HCL 4MG/2ML INJ IV ONE (12:00)
[2021-09-18] MEDS ORDERED: SODIUM CHLORIDE 0.9% 500 ML IV ONE (12:00)
[2021-09-18 12:10] LABS: BASOPHILS % 0.4 % (0.0-2.0); HEMATOCRIT. 35.3 % (42.0-52.0); HEMOGLOBIN. 11.3 g/dL (14.0-18.0); LYMPHOCYTES % 16.7 % (20.0-50.0); MEAN CORPUSCULAR HEMOGLOBIN 27.1 pg (28.0-32.0); MEAN CORPUSCULAR VOLUME 84.9 fL (80.0-94.0); MEAN PLATELET VOLUME 9.7 fl (7.4-10.4); MONOCYTES % 9.2 % (2.0-8.0); NEUTROPHILS % 71.7 % (40.0-76.0); PLATELET 241 x1000/uL (130-400); RED BLOOD CELL COUNT 4.16 mill/uL (4.7-6.1); RED CELL DISTRIBUTION WIDTH 14.1 % (11.6-14.6)
[2021-09-18 12:19] LABS: CHLORIDE 106 mEq/L (98-107)
[2021-09-18 12:30] LABS: ETHANOL BLOOD < 10 mg/dL
[2021-09-18] MEDS ORDERED: MAGNESIUM/ALUMINUM HYDROXIDE/SIMETHICONE 30ML UDC PO NR (14:00)
[2021-09-18] MEDS ORDERED: MORPHINE SULFATE 4 MG/ML CPJ (NOT FOR IM USE) IV ONE (15:15)
[2021-09-18] MEDS ORDERED: DIPHENHYDRAMINE 25MG CAPSULE PO ONE (15:15)
[2021-09-18 17:18] LABS: CLARITY URINE CLOUDY (CLEAR); COLOR URINE YELLOW (YELLOW); KETONES URINE NEGATIVE (NEGATIVE); LEUKOCYTE ESTERASE URINE 2+ (NEGATIVE); NITRITE URINE NEGATIVE (NEGATIVE); OCCULT BLOOD URINE TRACE (NEGATIVE); PH URINE 5.5 (4.5-8.0); PROTEIN URINE 3+ (NEGATIVE); SPECIFIC GRAVITY URINE 1.016 (1.005-1.030); UROBILINOGEN URINE 0.2 E.U./dL (0.2-1.0)
[2021-09-18 17:36] LABS: *AMPHETAMINES SCREEN URINE NEGATIVE (NEGATIVE); *BARBITURATES SCREEN URINE NEGATIVE (NEGATIVE); *BENZODIAZEPINES SCREEN URINE NEGATIVE (NEGATIVE); *COCAINE SCREEN URINE NEGATIVE (NEGATIVE); CANNABINOID URINE SCREEN NEGATIVE (NEGATIVE); METHADONE URINE SCREEN NEGATIVE (NEGATIVE); OPIATES URINE SCREEN PRESUMTIVE POSITIVE (NEGATIVE); PHENCYCLIDINE URINE SCREEN NEGATIVE (NEGATIVE)
[2021-09-18] MEDS ORDERED: DIPHENHYDRAMINE 50MG/ML VIAL IV ONE (20:30)
[2021-09-18] MEDS ORDERED: HYDROCODONE/ACETAMINOPHEN 10/325MG TABLET PO PRN (23:45)
[2021-09-19] MEDS ORDERED: DIPHENHYDRAMINE 50MG/ML VIAL IV NR (06:30)
[2021-09-19] MEDS ORDERED: NALOXONE HCL 0.4MG/ML VIAL IV PRN (07:30)
[2021-09-19 08:55] VITALS: BP 126/89
[2021-09-19 09:00] VITALS: BP 126/89
[2021-09-19] MEDS ORDERED: INSULIN GLARGINE 100 UNITS/ML SUBCUT NR (11:15)
[2021-09-19] MEDS ORDERED: DEXTROSE 50% WATER 50ML SYRINGE IV PRN (11:15)
[2021-09-19] MEDS ORDERED: CEFTRIAXONE 1 G PREMIX 50 ML IV SCH (11:15)
[2021-09-19] MEDS ORDERED: ACETAMINOPHEN 325MG TABLET PO PRN (11:15)
[2021-09-19] MEDS ORDERED: ONDANSETRON HCL 4MG/2ML INJ IV PRN (11:15)
[2021-09-19] MEDS ORDERED: METOCLOPRAMIDE HCL 10MG/2ML VIAL IV PRN (11:30)
[2021-09-19] MEDS ORDERED: SODIUM CHLORIDE 0.45% 1,000 ML IV SCH (11:30)
[2021-09-19] MEDS ORDERED: MORPHINE SULFATE 2 MG/ML CPJ (NOT FOR IM USE) IV NR (11:45)
[2021-09-19 11:52] VITALS: BP 126/89
[2021-09-19] MEDS ORDERED: METOCLOPRAMIDE HCL 10MG/2ML VIAL IV SCH (12:00)
[2021-09-19] MEDS ORDERED: BLOOD SUGAR DIAGNOSTIC STRIP TEST SCH (12:20)
[2021-09-19] MEDS ORDERED: INSULIN LISPRO 100 UNITS/ML SUBCUT SCH (12:50)
[2021-09-19] MEDS ORDERED: CEFTRIAXONE 1,000 MG in DEXTROSE 5% WATER 50 ML IV SCH (13:00)
[2021-09-19] MEDS ORDERED: INSULIN GLARGINE 100 UNITS/ML SUBCUT SCH (22:00)
== END 2021-09-19 14:19 | disposition left against medical advice (07) | DRG 690 ==
LOC: ER 09:18 → MICUSO 15:36 → EDBEDREQ 15:39 → EDBEDREQTM 15:39 → 6WST 09-19 07:23
PROVIDERS: ADMIT Internal Medicine; ATTEND Internal Medicine
DX: N10 Acute pyelonephritis (principal); E87.1 Hypo-osmolality and hyponatremia; E87.2 Acidosis; D64.9 Anemia, unspecified; E11.22 Type 2 diabetes mellitus with diabetic chronic kidney disease; I12.9 Hypertensive chronic kidney disease with stage 1 through stage 4 chronic kidney disease, or unspecified chronic kidney disease; I16.0 Hypertensive urgency; N17.9 Acute kidney failure, unspecified; N18.9 Chronic kidney disease, unspecified; R56.9 Unspecified convulsions; E11.51 Type 2 diabetes mellitus with diabetic peripheral angiopathy without gangrene; Z72.89 Other problems related to lifestyle; Z79.4 Long term (current) use of insulin; E11.65 Type 2 diabetes mellitus with hyperglycemia
CPT/HCPCS: 36415; 71045; 74176; 80053; 80305; 80320; 81003; 82962; 83880; 84484; 85025; 93005; 99285; J0696; J1200; J1815; J2270; J2405; J2765; J7040; J7060; Q0163; G0480

== ENCOUNTER 2021-12-21 05:44 | Inpatient (IN) | payer OTHER, MEDICAID ==
[~2021-12-21] VITALS: Ht 190.5 cm; Wt 156.9 kg
[2021-12-21] MEDS ORDERED: ACETAMINOPHEN 325MG TABLET PO STA (06:01)
[2021-12-21] MEDS ORDERED: SODIUM CHLORIDE 0.9% 1,000 ML IV ONE (06:15)
[2021-12-21 06:27] LABS: HEMATOCRIT. 33.5 % (42.0-52.0); HEMOGLOBIN. 10.9 g/dL (14.0-18.0); MEAN CORPUSCULAR HEMOGLOBIN 28.3 pg (28.0-32.0); MEAN CORPUSCULAR VOLUME 87.1 fL (80.0-94.0); MEAN PLATELET VOLUME 9.4 fl (7.4-10.4); PLATELET 202 x1000/uL (130-400); RED BLOOD CELL COUNT 3.84 mill/uL (4.7-6.1); RED CELL DISTRIBUTION WIDTH 14.9 % (11.6-14.6)
[2021-12-21 06:35] LABS: CHLORIDE 102 mEq/L (98-107)
[2021-12-21 06:36] LABS: INR 0.9; PROTHROMBIN TIME 9.8 sec (9.6-11.0)
[2021-12-21 07:11] LABS: PLATELET ESTIMATE NORMAL
[2021-12-21] MEDS ORDERED: DIPHENHYDRAMINE 50MG/ML VIAL IV ONE (07:45)
[2021-12-21] MEDS ORDERED: KETOROLAC 30MG/ML VIAL IV ONE (07:45)
[2021-12-21] MEDS ORDERED: MORPHINE SULFATE 4 MG/ML CPJ (NOT FOR IM USE) IV ONE (09:30)
[2021-12-21] MEDS ORDERED: VANCOMYCIN 1G PREMIX 200 ML IV ONE (10:45)
[2021-12-21] MEDS ORDERED: PIPERACILLIN/TAZ 3.375G PREMIX 50 ML IV ONE (10:45)
[2021-12-21] MEDS ORDERED: INSULIN GLARGINE 100 UNITS/ML SUBCUT NR (11:30)
[2021-12-21] MEDS ORDERED: ONDANSETRON HCL 4MG/2ML INJ IV PRN (11:30)
[2021-12-21] MEDS ORDERED: ACETAMINOPHEN 325MG TABLET PO PRN (11:30)
[2021-12-21] MEDS ORDERED: DEXTROSE 50% WATER 50ML SYRINGE IV PRN (11:30)
[2021-12-21 12:15] VITALS: BP 111/48
[2021-12-21] MEDS: BLOOD SUGAR DIAGNOSTIC STRIP TEST SCH ×3 (12:20→20:21)
[2021-12-21] MEDS: INSULIN LISPRO 100 UNITS/ML SUBCUT SCH ×3 (12:50→20:21)
[2021-12-21 16:00] VITALS: BP 120/66
[2021-12-21] MEDS: HYDROCODONE/ACETAMINOPHEN 5/325MG TABLET PO PRN (19:01)
[2021-12-21 19:21] LABS: CLARITY URINE CLOUDY (CLEAR); COLOR URINE YELLOW (YELLOW); KETONES URINE NEGATIVE (NEGATIVE); LEUKOCYTE ESTERASE URINE 2+ (NEGATIVE); NITRITE URINE NEGATIVE (NEGATIVE); OCCULT BLOOD URINE 1+ (NEGATIVE); PH URINE 5.5 (4.5-8.0); PROTEIN URINE 3+ (NEGATIVE); SPECIFIC GRAVITY URINE 1.016 (1.005-1.030); UROBILINOGEN URINE 0.2 E.U./dL (0.2-1.0)
[2021-12-21] MEDS ORDERED: NALOXONE HCL 0.4MG/ML VIAL IV PRN (19:30)
[2021-12-21 20:00] VITALS: BP 120/66
[2021-12-21] MEDS: DIPHENHYDRAMINE 50MG/ML VIAL IV PRN (20:22)
[2021-12-21] MEDS ORDERED: PIPERACILLIN/TAZOBACTAM 3.375 G in DEXTROSE 5% WATER 50 ML IV SCH (21:00)
[2021-12-21] MEDS: MORPHINE SULFATE 2 MG/ML CPJ (NOT FOR IM USE) IV PRN (21:52)
[2021-12-21] MEDS: INSULIN GLARGINE 100 UNITS/ML SUBCUT SCH (22:28)
[2021-12-21] MEDS: PIPERACILLIN/TAZOBACTAM 3.375 G in DEXTROSE 5% WATER 50 ML IV SCH (22:41)
[2021-12-22] VITALS: BP 134/72
[2021-12-22] MEDS: DIPHENHYDRAMINE 50MG/ML VIAL IV PRN ×4 (03:35→23:31)
[2021-12-22 04:00] VITALS: BP 141/76
[2021-12-22] MEDS: MORPHINE SULFATE 2 MG/ML CPJ (NOT FOR IM USE) IV PRN (06:07)
[2021-12-22] MEDS: BLOOD SUGAR DIAGNOSTIC STRIP TEST SCH ×4 (06:54→20:28)
[2021-12-22 08:26] VITALS: BP 153/86
[2021-12-22] MEDS ORDERED: REGADENOSON 0.4 MG/5 ML IV SCH (10:00)
[2021-12-22 10:10] LABS: BASOPHILS % 0.2 % (0.0-2.0); EOSINOPHILS % 2.1 % (0.0-5.0); HEMATOCRIT. 28.3 % (42.0-52.0); HEMOGLOBIN. 9.2 g/dL (14.0-18.0); LYMPHOCYTES % 13.2 % (20.0-50.0); MEAN CORPUSCULAR HEMOGLOBIN 28.6 pg (28.0-32.0); MEAN CORPUSCULAR VOLUME 87.7 fL (80.0-94.0); MEAN PLATELET VOLUME 9.5 fl (7.4-10.4); NEUTROPHILS % 76.5 % (40.0-76.0); PLATELET 173 x1000/uL (130-400); RED BLOOD CELL COUNT 3.23 mill/uL (4.7-6.1); RED CELL DISTRIBUTION WIDTH 15.3 % (11.6-14.6)
[2021-12-22] MEDS: INSULIN LISPRO 100 UNITS/ML SUBCUT SCH ×4 (10:30→21:21)
[2021-12-22] MEDS: ASPIRIN 81MG TABLET PO SCH (10:31)
[2021-12-22] MEDS: PIPERACILLIN/TAZOBACTAM 3.375 G in DEXTROSE 5% WATER 50 ML IV SCH ×2 (10:31→21:20)
[2021-12-22] MEDS: INSULIN GLARGINE 100 UNITS/ML SUBCUT SCH ×2 (10:32→21:25)
[2021-12-22 11:37] LABS: CHLORIDE 109 mEq/L (98-107)
[2021-12-22] MEDS: AMLODIPINE 10MG TABLET PO SCH (12:26)
[2021-12-22 12:30] VITALS: BP 158/89
[2021-12-22] MEDS ORDERED: VANCOMYCIN 1,750 MG in DEXT 5% WATER 500 ML IV NR (15:30)
[2021-12-22 16:07] VITALS: BP 169/72
[2021-12-22] MEDS: HYDRALAZINE HCL 100MG TABLET PO SCH (16:55)
[2021-12-22] MEDS: HYDROCODONE/ACETAMINOPHEN 5/325MG TABLET PO PRN (20:41)
[2021-12-23] VITALS: BP 144/67
[2021-12-23] MEDS: MORPHINE SULFATE 2 MG/ML CPJ (NOT FOR IM USE) IV PRN ×3 (01:03→17:10)
[2021-12-23 04:00] VITALS: BP 163/84
[2021-12-23] MEDS: HYDROCODONE/ACETAMINOPHEN 5/325MG TABLET PO PRN ×3 (06:13→13:23)
[2021-12-23] MEDS: BLOOD SUGAR DIAGNOSTIC STRIP TEST SCH ×4 (06:21→20:08)
[2021-12-23] MEDS: DIPHENHYDRAMINE 50MG/ML VIAL IV PRN ×3 (06:50→20:08)
[2021-12-23 08:00] VITALS: BP 141/70
[2021-12-23 08:44] LABS: BASOPHILS % 0.3 % (0.0-2.0); EOSINOPHILS % 3.1 % (0.0-5.0); HEMATOCRIT. 30.4 % (42.0-52.0); HEMOGLOBIN. 9.9 g/dL (14.0-18.0); LYMPHOCYTES % 20.7 % (20.0-50.0); MEAN CORPUSCULAR HEMOGLOBIN 28.9 pg (28.0-32.0); MEAN CORPUSCULAR VOLUME 88.5 fL (80.0-94.0); MEAN PLATELET VOLUME 9.4 fl (7.4-10.4); MONOCYTES % 12.3 % (2.0-8.0); NEUTROPHILS % 63.6 % (40.0-76.0); PLATELET 185 x1000/uL (130-400); RED BLOOD CELL COUNT 3.44 mill/uL (4.7-6.1); RED CELL DISTRIBUTION WIDTH 15.1 % (11.6-14.6)
[2021-12-23 09:23] LABS: PHOSPHORUS 5.9 mg/dL (2.5-4.9); T4 FREE 0.98 ng/dL (0.76-1.46)
[2021-12-23] MEDS: ASPIRIN 81MG TABLET PO SCH (10:15)
[2021-12-23] MEDS: HYDRALAZINE HCL 100MG TABLET PO SCH ×3 (10:16→17:17)
[2021-12-23] MEDS: AMLODIPINE 10MG TABLET PO SCH (10:16)
[2021-12-23] MEDS: INSULIN LISPRO 100 UNITS/ML SUBCUT SCH ×4 (10:27→21:05)
[2021-12-23] MEDS: INSULIN GLARGINE 100 UNITS/ML SUBCUT SCH ×2 (10:28→21:05)
[2021-12-23] MEDS: PIPERACILLIN/TAZOBACTAM 3.375 G in DEXTROSE 5% WATER 50 ML IV SCH ×2 (10:28→20:07)
[2021-12-23 12:00] VITALS: BP 162/96
[2021-12-23 12:57] LABS: BG BASE EXCESS -5.7 mmol/L (-2.0-2.0); BG CARBOXYHEMOGLOBIN 0.1 % (0.5-1.5); BG DEOXYHEMOGLOBIN 7.1 % (0.0-5.0); BG FRACTION INSPIRED OXYGEN 21; BG METHEMOGLOBIN 0.2 % (0.0-1.5); BG OXYGEN SATURATION 92.9 % (92.0-98.5); BG OXYHEMOGLOBIN 92.6 % (94.0-97.0); BG PCO2 34.4 mmHg (35.0-45.0); BG PH 7.361 (7.350-7.450); BG PO2 85.5 mmHg (75.0-100.0); BG SAMPLE SITE LEFT RADIAL; BG TOTAL HEMOGLOBIN 9.6 g/dL (12.0-18.0); BG VENT MODE ROOM AIR
[2021-12-23 16:00] VITALS: BP 141/70
[2021-12-23 20:00] VITALS: BP 168/77
[2021-12-24] VITALS: BP 131/66
[2021-12-24 04:00] VITALS: BP 146/71
[2021-12-24] MEDS: DIPHENHYDRAMINE 50MG/ML VIAL IV PRN ×3 (05:07→23:49)
[2021-12-24] MEDS: BLOOD SUGAR DIAGNOSTIC STRIP TEST SCH ×4 (07:20→20:30)
[2021-12-24 08:23] VITALS: BP 175/80
[2021-12-24] MEDS: AMLODIPINE 10MG TABLET PO SCH (08:36)
[2021-12-24] MEDS: HYDRALAZINE HCL 100MG TABLET PO SCH ×3 (08:36→17:02)
[2021-12-24] MEDS: PIPERACILLIN/TAZOBACTAM 3.375 G in DEXTROSE 5% WATER 50 ML IV SCH ×2 (08:36→20:59)
[2021-12-24] MEDS: ASPIRIN 81MG TABLET PO SCH (08:36)
[2021-12-24] MEDS: MORPHINE SULFATE 2 MG/ML CPJ (NOT FOR IM USE) IV PRN ×2 (08:37→17:04)
[2021-12-24] MEDS: INSULIN LISPRO 100 UNITS/ML SUBCUT SCH ×4 (08:46→21:09)
[2021-12-24] MEDS: INSULIN GLARGINE 100 UNITS/ML SUBCUT SCH ×2 (11:46→21:10)
[2021-12-24 12:25] VITALS: BP 165/103
[2021-12-24] MEDS ORDERED: VANCOMYCIN 1GM PMX (XELLIA) 200 ML IV SCH (14:00)
[2021-12-24] MEDS: CLONIDINE 0.2MG TABLET PO SCH ×2 (14:18→20:59)
[2021-12-24 16:11] VITALS: BP 155/93
[2021-12-24 20:00] VITALS: BP 133/85
[2021-12-24] MEDS: HYDROCODONE/ACETAMINOPHEN 5/325MG TABLET PO PRN (21:04)
[2021-12-25] VITALS: BP 115/59
[2021-12-25] MEDS: MORPHINE SULFATE 2 MG/ML CPJ (NOT FOR IM USE) IV PRN ×3 (03:25→20:20)
[2021-12-25 04:00] VITALS: BP 102/60
[2021-12-25 05:17] LABS: BASOPHILS % 0.6 % (0.0-2.0); HEMATOCRIT. 29.7 % (42.0-52.0); HEMOGLOBIN. 9.8 g/dL (14.0-18.0); LYMPHOCYTES % 32.4 % (20.0-50.0); MEAN CORPUSCULAR HEMOGLOBIN 28.6 pg (28.0-32.0); MEAN CORPUSCULAR VOLUME 86.9 fL (80.0-94.0); MEAN PLATELET VOLUME 9.1 fl (7.4-10.4); MONOCYTES % 13.2 % (2.0-8.0); NEUTROPHILS % 49.8 % (40.0-76.0); PLATELET 223 x1000/uL (130-400); RED BLOOD CELL COUNT 3.42 mill/uL (4.7-6.1); RED CELL DISTRIBUTION WIDTH 15.3 % (11.6-14.6)
[2021-12-25] MEDS: CLONIDINE 0.2MG TABLET PO SCH ×3 (05:30→23:08)
[2021-12-25] MEDS: DIPHENHYDRAMINE 50MG/ML VIAL IV PRN ×3 (06:04→19:51)
[2021-12-25 06:21] LABS: PHOSPHORUS 6.1 mg/dL (2.5-4.9)
[2021-12-25] MEDS: BLOOD SUGAR DIAGNOSTIC STRIP TEST SCH ×4 (06:21→21:00)
[2021-12-25] MEDS: INSULIN LISPRO 100 UNITS/ML SUBCUT SCH ×4 (07:50→23:09)
[2021-12-25 08:00] VITALS: BP 129/65
[2021-12-25] MEDS: ASPIRIN 81MG TABLET PO SCH (10:08)
[2021-12-25] MEDS: AMLODIPINE 10MG TABLET PO SCH (10:08)
[2021-12-25] MEDS: HYDRALAZINE HCL 100MG TABLET PO SCH ×3 (10:09→17:45)
[2021-12-25] MEDS: PIPERACILLIN/TAZOBACTAM 3.375 G in DEXTROSE 5% WATER 50 ML IV SCH ×2 (10:09→23:08)
[2021-12-25] MEDS: INSULIN GLARGINE 100 UNITS/ML SUBCUT SCH ×2 (10:11→23:09)
[2021-12-25 12:00] VITALS: BP 145/88
[2021-12-25 16:00] VITALS: BP 147/71
[2021-12-25 20:00] VITALS: BP 153/74
[2021-12-26] VITALS: BP 114/56
[2021-12-26] MEDS: DIPHENHYDRAMINE 50MG/ML VIAL IV PRN ×2 (01:35→08:59)
[2021-12-26] MEDS: MORPHINE SULFATE 2 MG/ML CPJ (NOT FOR IM USE) IV PRN ×2 (02:08→08:59)
[2021-12-26 04:00] VITALS: BP 108/61
[2021-12-26] MEDS: CLONIDINE 0.2MG TABLET PO SCH ×2 (05:03→15:26)
[2021-12-26] MEDS: BLOOD SUGAR DIAGNOSTIC STRIP TEST SCH ×2 (06:27→12:20)
[2021-12-26 08:00] VITALS: BP 141/87
[2021-12-26] MEDS: HYDRALAZINE HCL 100MG TABLET PO SCH ×2 (08:59→15:26)
[2021-12-26] MEDS: AMLODIPINE 10MG TABLET PO SCH (09:00)
[2021-12-26] MEDS: ASPIRIN 81MG TABLET PO SCH (09:00)
[2021-12-26] MEDS: INSULIN LISPRO 100 UNITS/ML SUBCUT SCH ×2 (09:03→15:27)
[2021-12-26] MEDS: PIPERACILLIN/TAZOBACTAM 3.375 G in DEXTROSE 5% WATER 50 ML IV SCH (09:03)
[2021-12-26] MEDS: INSULIN GLARGINE 100 UNITS/ML SUBCUT SCH (09:03)
[2021-12-26 12:00] VITALS: BP 141/73
[2021-12-26 14:53] VITALS: BP 141/73
== END 2021-12-26 16:27 | disposition home health service (06) | DRG 872 ==
LOC: ER 05:44 → 6WST 09:24 → EDBEDREQTM 09:27 → EDBEDREQ 09:27 → ENRESERV 10:56
PROVIDERS: ADMIT Internal Medicine Pulmonary Disease; ATTEND Internal Medicine
DX: A41.9 Sepsis, unspecified organism (principal); N17.9 Acute kidney failure, unspecified; E44.0 Moderate protein-calorie malnutrition; I50.32 Chronic diastolic (congestive) heart failure; I13.2 Hypertensive heart and chronic kidney disease with heart failure and with stage 5 chronic kidney disease, or end stage renal disease; E87.1 Hypo-osmolality and hyponatremia; Z68.41 Body mass index [BMI] 40.0-44.9, adult; N39.0 Urinary tract infection, site not specified; N18.5 Chronic kidney disease, stage 5; E87.20 Acidosis, unspecified; L03.116 Cellulitis of left lower limb; L03.115 Cellulitis of right lower limb; S80.811A Abrasion, right lower leg, initial encounter; G40.909 Epilepsy, unspecified, not intractable, without status epilepticus; E11.65 Type 2 diabetes mellitus with hyperglycemia; R65.20 Severe sepsis without septic shock; E11.22 Type 2 diabetes mellitus with diabetic chronic kidney disease; D63.1 Anemia in chronic kidney disease; E66.01 Morbid (severe) obesity due to excess calories; E78.5 Hyperlipidemia, unspecified; E11.51 Type 2 diabetes mellitus with diabetic peripheral angiopathy without gangrene; I25.10 Atherosclerotic heart disease of native coronary artery without angina pectoris; Z20.822 Contact with and (suspected) exposure to COVID-19; Z79.899 Other long term (current) drug therapy; Z89.511 Acquired absence of right leg below knee; Z89.512 Acquired absence of left leg below knee; Z82.49 Family history of ischemic heart disease and other diseases of the circulatory system; Z83.3 Family history of diabetes mellitus
CPT/HCPCS: 36415; 36600; 71045; 80048; 80053; 80061; 80202; 81003; 82375; 82805; 82962; 83036; 83605; 83735; 83880; 84100; 84145; 84439; 84443; 84481; 84484; 85025; 87426; 93005; 93306; 99291; J1200; J1815; J1885; J2270; J2543; J3370; J7030; J7060

== ENCOUNTER 2022-05-28 21:38 | Inpatient (IN) | payer MEDICARE, MEDICAID ==
[~2022-05-28] VITALS: Ht 190.5 cm; Wt 149.7 kg
[2022-05-28 23:11] LABS: BASOPHILS % 0.4 % (0.0-2.0); EOSINOPHILS % 3.2 % (0.0-5.0); HEMATOCRIT. 29.1 % (42.0-52.0); HEMOGLOBIN. 9.4 g/dL (14.0-18.0); LYMPHOCYTES % 21.9 % (20.0-50.0); MEAN CORPUSCULAR HEMOGLOBIN 29.5 pg (28.0-32.0); MEAN CORPUSCULAR VOLUME 91.3 fL (80.0-94.0); MEAN PLATELET VOLUME 9.8 fl (7.4-10.4); MONOCYTES % 10.4 % (2.0-8.0); NEUTROPHILS % 64.1 % (40.0-76.0); PLATELET 231 x1000/uL (130-400); RED BLOOD CELL COUNT 3.19 mill/uL (4.7-6.1); RED CELL DISTRIBUTION WIDTH 15.8 % (11.6-14.6)
[2022-05-28 23:19] LABS: CHLORIDE 109 mEq/L (98-107)
[2022-05-29] VITALS (15 sets, daily range): BP systolic 94–156; BP diastolic 50–99
[2022-05-29] MEDS ORDERED: DIPHENHYDRAMINE 50MG/ML VIAL IV ONE
[2022-05-29] MEDS ORDERED: ONDANSETRON HCL 4MG/2ML INJ IV ONE
[2022-05-29] MEDS ORDERED: LABETALOL 5MG/ML SYR 20 MG/4 ML SYRINGE IV NR
[2022-05-29] MEDS ORDERED: INSULIN REGULAR (HUMULIN R) 300UNITS/3ML VIAL SUBCUT NR (01:45)
[2022-05-29 02:07] LABS: BASOPHILS % 0.4 % (0.0-2.0); HEMOGLOBIN. 9.9 g/dL (14.0-18.0); LYMPHOCYTES % 23.9 % (20.0-50.0); MEAN CORPUSCULAR HEMOGLOBIN 29.6 pg (28.0-32.0); MEAN CORPUSCULAR VOLUME 90.3 fL (80.0-94.0); MEAN PLATELET VOLUME 9.2 fl (7.4-10.4); MONOCYTES % 11.5 % (2.0-8.0); NEUTROPHILS % 61.2 % (40.0-76.0); PLATELET 219 x1000/uL (130-400); RED BLOOD CELL COUNT 3.32 mill/uL (4.7-6.1); RED CELL DISTRIBUTION WIDTH 15.3 % (11.6-14.6)
[2022-05-29] MEDS ORDERED: ONDANSETRON HCL 4MG/2ML INJ IV PRN (03:45)
[2022-05-29] MEDS ORDERED: DEXTROSE 50% WATER 50ML SYRINGE IV PRN (04:15)
[2022-05-29] MEDS: BLOOD SUGAR DIAGNOSTIC STRIP TEST SCH ×4 (07:04→21:55)
[2022-05-29] MEDS: INSULIN LISPRO 100 UNITS/ML SUBCUT SCH ×4 (07:20→22:06)
[2022-05-29] MEDS: SEVELAMER CARBONATE 800 MG TABLET PO SCH ×3 (08:47→17:17)
[2022-05-29] MEDS: AMLODIPINE 10MG TABLET PO SCH (08:47)
[2022-05-29] MEDS: FOLIC ACID/VITAMIN B COMP W-C TABLET PO SCH (08:48)
[2022-05-29] MEDS: FUROSEMIDE 40MG TABLET PO SCH ×2 (08:48→17:14)
[2022-05-29] MEDS: HYDROCODONE/ACETAMINOPHEN 10/325MG TABLET PO PRN ×2 (08:48→17:14)
[2022-05-29] MEDS: LISINOPRIL 20MG TABLET PO SCH (08:49)
[2022-05-29] MEDS: PANTOPRAZOLE 40MG DR TABLET PO SCH (08:49)
[2022-05-29] MEDS ORDERED: METOPROLOL TARTRATE 25MG TABLET PO SCH (09:00)
[2022-05-29] MEDS ORDERED: TORS100T16 PO (09:08)
[2022-05-29] MEDS ORDERED: ATOR20TA65 PO (09:08)
[2022-05-29] MEDS ORDERED: AMLO10TA80 PO (09:08)
[2022-05-29] MEDS ORDERED: PANT40TA51 PO (09:08)
[2022-05-29] MEDS ORDERED: METO25TA6 PO (09:08)
[2022-05-29] MEDS: PANTOT AC/MIN OIL/PET HY-PHL OINT (AQUAPHOR) TOP SCH ×2 (09:15→22:11)
[2022-05-29] MEDS ORDERED: METOCLOPRAMIDE HCL 10MG/2ML VIAL IV PRN (09:30)
[2022-05-29] MEDS: INSULIN GLARGINE 100 UNITS/ML SUBCUT SCH ×2 (10:09→22:07)
[2022-05-29] MEDS: DIPHENHYDRAMINE 25MG CAPSULE PO PRN ×2 (10:13→17:14)
[2022-05-29 10:38] LABS: BASOPHILS % 0.2 % (0.0-2.0); EOSINOPHILS % 3.6 % (0.0-5.0); HEMATOCRIT. 28.4 % (42.0-52.0); HEMOGLOBIN. 9.1 g/dL (14.0-18.0); LYMPHOCYTES % 20.5 % (20.0-50.0); MEAN CORPUSCULAR HEMOGLOBIN 29.4 pg (28.0-32.0); MEAN CORPUSCULAR VOLUME 91.9 fL (80.0-94.0); MEAN PLATELET VOLUME 9.1 fl (7.4-10.4); MONOCYTES % 11.5 % (2.0-8.0); NEUTROPHILS % 64.2 % (40.0-76.0); PLATELET 208 x1000/uL (130-400); RED BLOOD CELL COUNT 3.09 mill/uL (4.7-6.1); RED CELL DISTRIBUTION WIDTH 16.1 % (11.6-14.6)
[2022-05-29] MEDS ORDERED: METOCLOPRAMIDE HCL 10MG/2ML VIAL IV SCH (12:00)
[2022-05-29 12:36] LABS: PHOSPHORUS 8.6 mg/dL (2.5-4.9)
[2022-05-29] MEDS ORDERED: NALOXONE HCL 0.4MG/ML VIAL IV PRN (13:00)
[2022-05-29 16:17] LABS: HEPATITIS B SURFACE ANTIGEN NEGATIVE
[2022-05-29] MEDS: CALCIUM CARBONATE 500MG TABLET CHEW PO SCH (17:14)
[2022-05-29] MEDS ORDERED: GABAPENTIN 300MG CAPSULE PO SCH (21:00)
[2022-05-29] MEDS: ATORVASTATIN CALCIUM 40MG TABLET PO SCH (22:07)
[2022-05-29] MEDS: EPOETIN ALFA-EPBX 4,000 UNIT/ML VIAL SUBCUT SCH (22:10)
[2022-05-30] VITALS (7 sets, daily range): BP systolic 135–167; BP diastolic 48–97
[2022-05-30] MEDS: DIPHENHYDRAMINE 25MG CAPSULE PO PRN ×3 (00:03→20:14)
[2022-05-30] MEDS: HYDROCODONE/ACETAMINOPHEN 10/325MG TABLET PO PRN ×3 (00:04→20:15)
[2022-05-30 05:54] LABS: BASOPHILS % 0.4 % (0.0-2.0); EOSINOPHILS % 2.7 % (0.0-5.0); HEMATOCRIT. 27.2 % (42.0-52.0); HEMOGLOBIN. 8.8 g/dL (14.0-18.0); LYMPHOCYTES % 18.3 % (20.0-50.0); MEAN CORPUSCULAR HEMOGLOBIN 29.5 pg (28.0-32.0); MEAN CORPUSCULAR VOLUME 90.7 fL (80.0-94.0); MEAN PLATELET VOLUME 9.9 fl (7.4-10.4); MONOCYTES % 10.9 % (2.0-8.0); NEUTROPHILS % 67.7 % (40.0-76.0); PLATELET 189 x1000/uL (130-400); RED CELL DISTRIBUTION WIDTH 15.8 % (11.6-14.6)
[2022-05-30] MEDS: BLOOD SUGAR DIAGNOSTIC STRIP TEST SCH ×4 (06:36→21:00)
[2022-05-30 07:36] LABS: CHLORIDE 108 mEq/L (98-107)
[2022-05-30 07:42] LABS: PHOSPHORUS 7.3 mg/dL (2.5-4.9)
[2022-05-30] MEDS: INSULIN LISPRO 100 UNITS/ML SUBCUT SCH ×4 (08:09→22:39)
[2022-05-30] MEDS ORDERED: FURO40TA5 PO (08:27)
[2022-05-30] MEDS ORDERED: CALC300T4 PO (08:27)
[2022-05-30] MEDS ORDERED: DIPH25TA62 PO (08:27)
[2022-05-30] MEDS ORDERED: BENZ100C86 PO (08:27)
[2022-05-30] MEDS ORDERED: CYCL5TAB PO (08:27)
[2022-05-30] MEDS ORDERED: FLUT15.844 BOTHNSTRLS (08:31)
[2022-05-30] MEDS ORDERED: INSNOV SUBCUT (08:31)
[2022-05-30] MEDS ORDERED: INSU100I24 SQ (08:31)
[2022-05-30] MEDS: CALCIUM CARBONATE 500MG TABLET CHEW PO SCH ×3 (09:07→17:41)
[2022-05-30] MEDS: SEVELAMER CARBONATE 800 MG TABLET PO SCH ×3 (09:07→17:41)
[2022-05-30] MEDS: FUROSEMIDE 40MG TABLET PO SCH ×2 (09:07→17:41)
[2022-05-30] MEDS: FOLIC ACID/VITAMIN B COMP W-C TABLET PO SCH (09:07)
[2022-05-30] MEDS: PANTOPRAZOLE 40MG DR TABLET PO SCH (09:08)
[2022-05-30] MEDS: AMLODIPINE 10MG TABLET PO SCH (09:08)
[2022-05-30] MEDS: PANTOT AC/MIN OIL/PET HY-PHL OINT (AQUAPHOR) TOP SCH (09:08)
[2022-05-30] MEDS: LISINOPRIL 20MG TABLET PO SCH (09:08)
[2022-05-30] MEDS: INSULIN GLARGINE 100 UNITS/ML SUBCUT SCH ×2 (09:10→22:39)
[2022-05-30] MEDS ORDERED: INSULIN GLARGINE 100 UNITS/ML SUBCUT ONE (11:30)
[2022-05-30] MEDS ORDERED: METOCLOPRAMIDE HCL 10MG/2ML VIAL IV PRN (14:45)
[2022-05-30] MEDS ORDERED: INSULIN GLARGINE 100 UNITS/ML SUBCUT SCH (22:00)
[2022-05-30] MEDS: ATORVASTATIN CALCIUM 40MG TABLET PO SCH (22:08)
[2022-05-30] MEDS: GABAPENTIN 100MG CAPSULE PO SCH (22:08)
[2022-05-31] VITALS (11 sets, daily range): BP systolic 134–162; BP diastolic 56–84
[2022-05-31] MEDS: CLONIDINE 0.1MG TABLET PO PRN ×2 (00:10→06:31)
[2022-05-31] MEDS: HYDROCODONE/ACETAMINOPHEN 10/325MG TABLET PO PRN ×3 (06:32→22:12)
[2022-05-31] MEDS: BLOOD SUGAR DIAGNOSTIC STRIP TEST SCH ×4 (06:37→20:57)
[2022-05-31 06:49] LABS: BASOPHILS % 0.3 % (0.0-2.0); EOSINOPHILS % 2.8 % (0.0-5.0); HEMATOCRIT. 28.1 % (42.0-52.0); HEMOGLOBIN. 9.3 g/dL (14.0-18.0); LYMPHOCYTES % 21.8 % (20.0-50.0); MEAN CORPUSCULAR HEMOGLOBIN 29.8 pg (28.0-32.0); MEAN CORPUSCULAR VOLUME 90.2 fL (80.0-94.0); MEAN PLATELET VOLUME 9.3 fl (7.4-10.4); MONOCYTES % 11.2 % (2.0-8.0); NEUTROPHILS % 63.9 % (40.0-76.0); PLATELET 198 x1000/uL (130-400); RED BLOOD CELL COUNT 3.12 mill/uL (4.7-6.1); RED CELL DISTRIBUTION WIDTH 15.7 % (11.6-14.6)
[2022-05-31 08:29] LABS: PHOSPHORUS 6.6 mg/dL (2.5-4.9)
[2022-05-31] MEDS: SEVELAMER CARBONATE 800 MG TABLET PO SCH ×3 (08:33→18:53)
[2022-05-31] MEDS: CALCIUM CARBONATE 500MG TABLET CHEW PO SCH ×3 (08:33→18:53)
[2022-05-31] MEDS: FUROSEMIDE 40MG TABLET PO SCH (08:33)
[2022-05-31] MEDS: FOLIC ACID/VITAMIN B COMP W-C TABLET PO SCH (08:34)
[2022-05-31] MEDS: AMLODIPINE 10MG TABLET PO SCH (08:34)
[2022-05-31] MEDS: FAMOTIDINE 20MG TABLET PO SCH (08:34)
[2022-05-31] MEDS: LISINOPRIL 20MG TABLET PO SCH (08:34)
[2022-05-31] MEDS: INSULIN LISPRO 100 UNITS/ML SUBCUT SCH ×4 (08:35→22:09)
[2022-05-31] MEDS: PANTOT AC/MIN OIL/PET HY-PHL OINT (AQUAPHOR) TOP SCH (08:36)
[2022-05-31] MEDS: INSULIN GLARGINE 100 UNITS/ML SUBCUT SCH ×2 (10:48→22:10)
[2022-05-31] MEDS ORDERED: ALTEPLASE 2MG/VIAL ITC NR (11:00)
[2022-05-31] MEDS: DIPHENHYDRAMINE 25MG CAPSULE PO PRN ×2 (12:53→20:54)
[2022-05-31] MEDS: GABAPENTIN 100MG CAPSULE PO SCH (20:54)
[2022-05-31] MEDS: ATORVASTATIN CALCIUM 40MG TABLET PO SCH (20:54)
[2022-05-31] MEDS: EPOETIN ALFA-EPBX 4,000 UNIT/ML VIAL SUBCUT SCH (20:55)
[2022-06-01] VITALS: BP 120/88
[2022-06-01 04:00] VITALS: BP 147/93
[2022-06-01 07:04] LABS: BASOPHILS % 0.4 % (0.0-2.0); EOSINOPHILS % 2.7 % (0.0-5.0); HEMOGLOBIN. 9.9 g/dL (14.0-18.0); LYMPHOCYTES % 20.5 % (20.0-50.0); MEAN CORPUSCULAR HEMOGLOBIN 29.5 pg (28.0-32.0); MEAN CORPUSCULAR VOLUME 89.8 fL (80.0-94.0); MEAN PLATELET VOLUME 9.6 fl (7.4-10.4); MONOCYTES % 10.6 % (2.0-8.0); NEUTROPHILS % 65.8 % (40.0-76.0); PLATELET 215 x1000/uL (130-400); RED BLOOD CELL COUNT 3.34 mill/uL (4.7-6.1); RED CELL DISTRIBUTION WIDTH 15.4 % (11.6-14.6)
[2022-06-01] MEDS: BLOOD SUGAR DIAGNOSTIC STRIP TEST SCH ×4 (07:20→21:14)
[2022-06-01 07:45] LABS: PHOSPHORUS 6.3 mg/dL (2.5-4.9)
[2022-06-01 08:00] VITALS: BP 167/69
[2022-06-01] MEDS: FUROSEMIDE 40MG TABLET PO SCH (08:21)
[2022-06-01] MEDS: FOLIC ACID/VITAMIN B COMP W-C TABLET PO SCH (08:21)
[2022-06-01] MEDS: FAMOTIDINE 20MG TABLET PO SCH (08:21)
[2022-06-01] MEDS: AMLODIPINE 10MG TABLET PO SCH (08:21)
[2022-06-01] MEDS: CALCIUM CARBONATE 500MG TABLET CHEW PO SCH ×3 (08:21→17:49)
[2022-06-01] MEDS: SEVELAMER CARBONATE 800 MG TABLET PO SCH ×3 (08:21→17:48)
[2022-06-01] MEDS: INSULIN LISPRO 100 UNITS/ML SUBCUT SCH ×4 (08:34→21:21)
[2022-06-01] MEDS: INSULIN GLARGINE 100 UNITS/ML SUBCUT SCH ×2 (08:35→21:20)
[2022-06-01] MEDS: DIPHENHYDRAMINE 25MG CAPSULE PO PRN ×2 (08:36→17:57)
[2022-06-01] MEDS: LISINOPRIL 20MG TABLET PO SCH (08:37)
[2022-06-01] MEDS: HYDROCODONE/ACETAMINOPHEN 10/325MG TABLET PO PRN ×2 (08:37→17:49)
[2022-06-01] MEDS: PANTOT AC/MIN OIL/PET HY-PHL OINT (AQUAPHOR) TOP SCH (09:00)
[2022-06-01 12:00] VITALS: BP 173/89
[2022-06-01] MEDS: CLONIDINE 0.1MG TABLET PO PRN (12:55)
[2022-06-01 16:00] VITALS: BP 170/61
[2022-06-01 20:00] VITALS: BP 160/87
[2022-06-01] MEDS: ATORVASTATIN CALCIUM 40MG TABLET PO SCH (21:21)
[2022-06-01] MEDS: HYDRALAZINE HCL 50MG TABLET PO SCH (21:21)
[2022-06-01] MEDS: GABAPENTIN 100MG CAPSULE PO SCH (21:21)
[2022-06-02] VITALS (15 sets, daily range): BP systolic 91–180; BP diastolic 58–111
[2022-06-02] MEDS: DIPHENHYDRAMINE 25MG CAPSULE PO PRN ×3 (00:42→17:57)
[2022-06-02] MEDS: CLONIDINE 0.1MG TABLET PO PRN (00:44)
[2022-06-02] MEDS: HYDROCODONE/ACETAMINOPHEN 10/325MG TABLET PO PRN ×3 (00:45→18:01)
[2022-06-02 06:27] LABS: BASOPHILS % 0.3 % (0.0-2.0); EOSINOPHILS % 3.5 % (0.0-5.0); HEMATOCRIT. 30.5 % (42.0-52.0); HEMOGLOBIN. 10.1 g/dL (14.0-18.0); LYMPHOCYTES % 19.5 % (20.0-50.0); MEAN CORPUSCULAR HEMOGLOBIN 29.6 pg (28.0-32.0); MEAN CORPUSCULAR VOLUME 89.2 fL (80.0-94.0); MEAN PLATELET VOLUME 9.1 fl (7.4-10.4); MONOCYTES % 10.7 % (2.0-8.0); PLATELET 206 x1000/uL (130-400); RED BLOOD CELL COUNT 3.42 mill/uL (4.7-6.1); RED CELL DISTRIBUTION WIDTH 15.4 % (11.6-14.6)
[2022-06-02] MEDS: BLOOD SUGAR DIAGNOSTIC STRIP TEST SCH ×4 (06:27→21:00)
[2022-06-02] MEDS: CALCIUM CARBONATE 500MG TABLET CHEW PO SCH ×3 (07:50→17:20)
[2022-06-02] MEDS: FAMOTIDINE 20MG TABLET PO SCH (08:46)
[2022-06-02] MEDS: LISINOPRIL 20MG TABLET PO SCH (08:46)
[2022-06-02] MEDS: SEVELAMER CARBONATE 800 MG TABLET PO SCH ×3 (08:47→17:20)
[2022-06-02] MEDS: FUROSEMIDE 40MG TABLET PO SCH (08:47)
[2022-06-02] MEDS: AMLODIPINE 10MG TABLET PO SCH (08:47)
[2022-06-02] MEDS: INSULIN LISPRO 100 UNITS/ML SUBCUT SCH ×4 (08:50→23:00)
[2022-06-02] MEDS: INSULIN GLARGINE 100 UNITS/ML SUBCUT SCH ×2 (08:50→22:43)
[2022-06-02] MEDS: PANTOT AC/MIN OIL/PET HY-PHL OINT (AQUAPHOR) TOP SCH (09:00)
[2022-06-02] MEDS: FOLIC ACID/VITAMIN B COMP W-C TABLET PO SCH (09:39)
[2022-06-02] MEDS: HYDRALAZINE HCL 50MG TABLET PO SCH ×2 (09:39→21:00)
[2022-06-02] MEDS: HEPARIN SODIUM 1,000 UNIT/1ML VIAL IV NR ×2 (17:13→18:17)
[2022-06-02] MEDS: ATORVASTATIN CALCIUM 40MG TABLET PO SCH (21:00)
[2022-06-02] MEDS: GABAPENTIN 100MG CAPSULE PO SCH (22:41)
[2022-06-03] VITALS: BP 136/72
[2022-06-03] MEDS: DIPHENHYDRAMINE 25MG CAPSULE PO PRN ×2 (00:04→08:59)
[2022-06-03] MEDS: HYDROCODONE/ACETAMINOPHEN 10/325MG TABLET PO PRN ×2 (00:24→16:10)
[2022-06-03 06:27] LABS: HEMATOCRIT 31.1 % (42.0-52.0); HEMOGLOBIN 10.4 g/dL (14.0-18.0); MEAN CORPUSCULAR VOLUME 89.5 fL (80.0-94.0); PLATELET 199 x1000/uL (130-400); RED BLOOD CELL COUNT 3.48 mill/uL (4.7-6.1); RED CELL DISTRIBUTION WIDTH 15.3 % (11.6-14.6)
[2022-06-03] MEDS: BLOOD SUGAR DIAGNOSTIC STRIP TEST SCH ×4 (07:20→21:24)
[2022-06-03 08:00] VITALS: BP 89/34
[2022-06-03] MEDS: INSULIN GLARGINE 100 UNITS/ML SUBCUT SCH ×2 (08:52→21:53)
[2022-06-03] MEDS: INSULIN LISPRO 100 UNITS/ML SUBCUT SCH ×4 (08:53→21:54)
[2022-06-03] MEDS: CALCIUM CARBONATE 500MG TABLET CHEW PO SCH ×3 (08:53→17:27)
[2022-06-03] MEDS: FOLIC ACID/VITAMIN B COMP W-C TABLET PO SCH (08:55)
[2022-06-03] MEDS: AMLODIPINE 10MG TABLET PO SCH (08:57)
[2022-06-03] MEDS: FUROSEMIDE 40MG TABLET PO SCH (08:58)
[2022-06-03] MEDS: SEVELAMER CARBONATE 800 MG TABLET PO SCH ×3 (08:58→17:27)
[2022-06-03] MEDS: FAMOTIDINE 20MG TABLET PO SCH (08:59)
[2022-06-03] MEDS: LISINOPRIL 20MG TABLET PO SCH (08:59)
[2022-06-03] MEDS: HYDRALAZINE HCL 50MG TABLET PO SCH (09:00)
[2022-06-03 12:00] VITALS: BP 136/81
[2022-06-03 16:00] VITALS: BP 147/87
[2022-06-03] MEDS ORDERED: NALOXONE HCL 0.4MG/ML VIAL IV PRN (16:00)
[2022-06-03] MEDS: PANTOT AC/MIN OIL/PET HY-PHL OINT (AQUAPHOR) TOP SCH (17:31)
[2022-06-03 20:00] VITALS: BP 133/94
[2022-06-03] MEDS: GABAPENTIN 100MG CAPSULE PO SCH (21:24)
[2022-06-03] MEDS: ATORVASTATIN CALCIUM 40MG TABLET PO SCH (21:24)
[2022-06-04] VITALS: BP 137/84
[2022-06-04 04:00] VITALS: BP 134/72
[2022-06-04] MEDS: DIPHENHYDRAMINE 25MG CAPSULE PO PRN ×3 (06:16→22:44)
[2022-06-04] MEDS: HYDROCODONE/ACETAMINOPHEN 10/325MG TABLET PO PRN ×3 (06:16→22:44)
[2022-06-04 06:48] LABS: BASOPHILS % 0.4 % (0.0-2.0); EOSINOPHILS % 3.2 % (0.0-5.0); HEMATOCRIT. 30.6 % (42.0-52.0); HEMOGLOBIN. 10.3 g/dL (14.0-18.0); MEAN CORPUSCULAR HEMOGLOBIN 30.2 pg (28.0-32.0); MEAN CORPUSCULAR VOLUME 89.9 fL (80.0-94.0); MEAN PLATELET VOLUME 9.1 fl (7.4-10.4); MONOCYTES % 12.6 % (2.0-8.0); NEUTROPHILS % 58.8 % (40.0-76.0); PLATELET 214 x1000/uL (130-400); RED CELL DISTRIBUTION WIDTH 15.7 % (11.6-14.6)
[2022-06-04] MEDS: BLOOD SUGAR DIAGNOSTIC STRIP TEST SCH ×4 (07:20→21:46)
[2022-06-04] MEDS: SEVELAMER CARBONATE 800 MG TABLET PO SCH ×3 (07:50→18:10)
[2022-06-04] MEDS: CALCIUM CARBONATE 500MG TABLET CHEW PO SCH ×3 (07:50→18:10)
[2022-06-04 07:52] LABS: PHOSPHORUS 6.2 mg/dL (2.5-4.9)
[2022-06-04 08:00] VITALS: BP 98/35
[2022-06-04] MEDS: FUROSEMIDE 40MG TABLET PO SCH (08:59)
[2022-06-04] MEDS: FAMOTIDINE 20MG TABLET PO SCH (08:59)
[2022-06-04] MEDS: FOLIC ACID/VITAMIN B COMP W-C TABLET PO SCH (08:59)
[2022-06-04] MEDS: PANTOT AC/MIN OIL/PET HY-PHL OINT (AQUAPHOR) TOP SCH (09:00)
[2022-06-04] MEDS: LISINOPRIL 20MG TABLET PO SCH (09:00)
[2022-06-04] MEDS: AMLODIPINE 5MG TABLET PO SCH (09:00)
[2022-06-04] MEDS: INSULIN LISPRO 100 UNITS/ML SUBCUT SCH ×4 (09:07→19:25)
[2022-06-04] MEDS: INSULIN GLARGINE 100 UNITS/ML SUBCUT SCH ×2 (10:00→21:50)
[2022-06-04 12:00] VITALS: BP 131/93
[2022-06-04 16:00] VITALS: BP 142/77
[2022-06-04 20:00] VITALS: BP 154/86
[2022-06-04] MEDS: ATORVASTATIN CALCIUM 40MG TABLET PO SCH (21:50)
[2022-06-04] MEDS: GABAPENTIN 100MG CAPSULE PO SCH (21:50)
[2022-06-05] VITALS (11 sets, daily range): BP systolic 95–155; BP diastolic 55–105
[2022-06-05] MEDS: HYDROCODONE/ACETAMINOPHEN 10/325MG TABLET PO PRN ×4 (05:56→23:12)
[2022-06-05] MEDS: DIPHENHYDRAMINE 25MG CAPSULE PO PRN ×3 (05:56→23:02)
[2022-06-05 06:41] LABS: BASOPHILS % 0.3 % (0.0-2.0); EOSINOPHILS % 4.5 % (0.0-5.0); HEMATOCRIT. 31.4 % (42.0-52.0); HEMOGLOBIN. 10.3 g/dL (14.0-18.0); LYMPHOCYTES % 21.7 % (20.0-50.0); MEAN CORPUSCULAR HEMOGLOBIN 29.5 pg (28.0-32.0); MEAN CORPUSCULAR VOLUME 89.8 fL (80.0-94.0); MEAN PLATELET VOLUME 9.2 fl (7.4-10.4); MONOCYTES % 12.5 % (2.0-8.0); PLATELET 221 x1000/uL (130-400); RED CELL DISTRIBUTION WIDTH 15.7 % (11.6-14.6)
[2022-06-05] MEDS: BLOOD SUGAR DIAGNOSTIC STRIP TEST SCH ×3 (07:20→21:00)
[2022-06-05] MEDS: CALCIUM CARBONATE 500MG TABLET CHEW PO SCH ×2 (07:50→12:50)
[2022-06-05 08:26] LABS: PHOSPHORUS 5.6 mg/dL (2.5-4.9)
[2022-06-05] MEDS: FOLIC ACID/VITAMIN B COMP W-C TABLET PO SCH (09:00)
[2022-06-05] MEDS: PANTOT AC/MIN OIL/PET HY-PHL OINT (AQUAPHOR) TOP SCH (09:00)
[2022-06-05] MEDS: FUROSEMIDE 40MG TABLET PO SCH (09:00)
[2022-06-05] MEDS: AMLODIPINE 5MG TABLET PO SCH (09:00)
[2022-06-05] MEDS: LISINOPRIL 20MG TABLET PO SCH (09:00)
[2022-06-05] MEDS: INSULIN GLARGINE 100 UNITS/ML SUBCUT SCH ×2 (10:03→22:48)
[2022-06-05] MEDS: INSULIN LISPRO 100 UNITS/ML SUBCUT SCH ×6 (10:04→22:53)
[2022-06-05] MEDS: SEVELAMER CARBONATE 800 MG TABLET PO SCH ×3 (10:05→18:46)
[2022-06-05] MEDS: FAMOTIDINE 20MG TABLET PO SCH (10:05)
[2022-06-05] MEDS ORDERED: ALTEPLASE 2MG/VIAL ITC NR (15:00)
[2022-06-05] MEDS: ENOXAPARIN 40MG/0.4ML SYR SUBCUT SCH (18:48)
[2022-06-05] MEDS: GABAPENTIN 100MG CAPSULE PO SCH (22:11)
[2022-06-05] MEDS: ATORVASTATIN CALCIUM 40MG TABLET PO SCH (22:11)
[2022-06-06] VITALS (7 sets, daily range): BP systolic 122–173; BP diastolic 64–111
[2022-06-06] MEDS: BLOOD SUGAR DIAGNOSTIC STRIP TEST SCH ×4 (06:15→21:20)
[2022-06-06 08:56] LABS: PHOSPHORUS 5.6 mg/dL (2.5-4.9)
[2022-06-06] MEDS: PANTOT AC/MIN OIL/PET HY-PHL OINT (AQUAPHOR) TOP SCH (09:00)
[2022-06-06] MEDS: FAMOTIDINE 20MG TABLET PO SCH (10:42)
[2022-06-06] MEDS: SEVELAMER CARBONATE 800 MG TABLET PO SCH ×3 (10:42→17:04)
[2022-06-06] MEDS: FUROSEMIDE 40MG TABLET PO SCH (10:42)
[2022-06-06] MEDS: FOLIC ACID/VITAMIN B COMP W-C TABLET PO SCH (10:42)
[2022-06-06] MEDS: CALCIUM CARBONATE 500MG TABLET CHEW PO SCH ×4 (10:42→17:04)
[2022-06-06] MEDS: ENOXAPARIN 40MG/0.4ML SYR SUBCUT SCH (10:43)
[2022-06-06] MEDS: LISINOPRIL 20MG TABLET PO SCH (10:47)
[2022-06-06] MEDS: AMLODIPINE 5MG TABLET PO SCH (10:47)
[2022-06-06] MEDS: INSULIN LISPRO 100 UNITS/ML SUBCUT SCH ×7 (10:54→21:39)
[2022-06-06] MEDS: INSULIN GLARGINE 100 UNITS/ML SUBCUT SCH ×2 (10:54→21:20)
[2022-06-06] MEDS: DIPHENHYDRAMINE 25MG CAPSULE PO PRN ×3 (10:55→21:41)
[2022-06-06] MEDS: HYDROCODONE/ACETAMINOPHEN 10/325MG TABLET PO PRN ×4 (10:56→21:41)
[2022-06-06 13:19] LABS: BASOPHILS % 0.5 % (0.0-2.0); EOSINOPHILS % 4.3 % (0.0-5.0); HEMOGLOBIN. 10.9 g/dL (14.0-18.0); LYMPHOCYTES % 27.8 % (20.0-50.0); MEAN CORPUSCULAR HEMOGLOBIN 29.7 pg (28.0-32.0); MEAN PLATELET VOLUME 9.3 fl (7.4-10.4); MONOCYTES % 11.7 % (2.0-8.0); NEUTROPHILS % 55.7 % (40.0-76.0); PLATELET 223 x1000/uL (130-400); RED BLOOD CELL COUNT 3.67 mill/uL (4.7-6.1); RED CELL DISTRIBUTION WIDTH 15.5 % (11.6-14.6)
[2022-06-06] MEDS: GABAPENTIN 100MG CAPSULE PO SCH (21:17)
[2022-06-06] MEDS: ATORVASTATIN CALCIUM 40MG TABLET PO SCH (21:18)
[2022-06-07] VITALS (12 sets, daily range): BP systolic 18–152; BP diastolic 43–142
[2022-06-07] MEDS: HYDROCODONE/ACETAMINOPHEN 10/325MG TABLET PO PRN ×2 (05:25→15:42)
[2022-06-07] MEDS: DIPHENHYDRAMINE 25MG CAPSULE PO PRN ×2 (05:27→15:45)
[2022-06-07] MEDS: BLOOD SUGAR DIAGNOSTIC STRIP TEST SCH ×3 (05:27→18:04)
[2022-06-07] MEDS: SEVELAMER CARBONATE 800 MG TABLET PO SCH ×3 (06:08→18:09)
[2022-06-07] MEDS: CALCIUM CARBONATE 500MG TABLET CHEW PO SCH ×3 (06:08→18:09)
[2022-06-07] MEDS: INSULIN LISPRO 100 UNITS/ML SUBCUT SCH ×6 (08:16→18:13)
[2022-06-07] MEDS ORDERED: AMLODIPINE 10MG TABLET PO SCH (09:00)
[2022-06-07] MEDS: FOLIC ACID/VITAMIN B COMP W-C TABLET PO SCH (09:45)
[2022-06-07] MEDS: FAMOTIDINE 20MG TABLET PO SCH (09:45)
[2022-06-07] MEDS: FUROSEMIDE 40MG TABLET PO SCH (09:46)
[2022-06-07] MEDS: LISINOPRIL 20MG TABLET PO SCH (09:51)
[2022-06-07] MEDS: INSULIN GLARGINE 100 UNITS/ML SUBCUT SCH (09:58)
[2022-06-07] MEDS: ENOXAPARIN 40MG/0.4ML SYR SUBCUT SCH (15:43)
== END 2022-06-07 18:48 | disposition home or self-care (01) | DRG 640 ==
LOC: ER 21:38 → MICUSO 05-29 01:42 → EDBEDREQ 05-29 02:00 → EDBEDREQTM 05-29 02:00 → 3WST 05-29 02:48 → 6EST 05-31 15:30
PROVIDERS: ADMIT Internal Medicine; ATTEND Internal Medicine
PROC: 5A1D70Z Performance of Urinary Filtration, Intermittent, Less than 6 Hours Per Day (ICD-10-PCS; principal; 2022-05-29)
PROC: 5A1D70Z Performance of Urinary Filtration, Intermittent, Less than 6 Hours Per Day (ICD-10-PCS; 2022-05-31)
PROC: 5A1D70Z Performance of Urinary Filtration, Intermittent, Less than 6 Hours Per Day (ICD-10-PCS; 2022-06-02)
PROC: 5A1D70Z Performance of Urinary Filtration, Intermittent, Less than 6 Hours Per Day (ICD-10-PCS; 2022-06-05)
PROC: 5A1D70Z Performance of Urinary Filtration, Intermittent, Less than 6 Hours Per Day (ICD-10-PCS; 2022-06-06)
DX: E87.70 Fluid overload, unspecified (principal); E43 Unspecified severe protein-calorie malnutrition; J96.01 Acute respiratory failure with hypoxia; N18.6 End stage renal disease; J81.1 Chronic pulmonary edema; N25.81 Secondary hyperparathyroidism of renal origin; Z68.41 Body mass index [BMI] 40.0-44.9, adult; I12.0 Hypertensive chronic kidney disease with stage 5 chronic kidney disease or end stage renal disease; E87.20 Acidosis, unspecified; I16.0 Hypertensive urgency; E11.22 Type 2 diabetes mellitus with diabetic chronic kidney disease; E11.65 Type 2 diabetes mellitus with hyperglycemia; D64.9 Anemia, unspecified; E66.9 Obesity, unspecified; E78.5 Hyperlipidemia, unspecified; E11.43 Type 2 diabetes mellitus with diabetic autonomic (poly)neuropathy; I25.10 Atherosclerotic heart disease of native coronary artery without angina pectoris; K31.84 Gastroparesis; G40.909 Epilepsy, unspecified, not intractable, without status epilepticus; Z89.512 Acquired absence of left leg below knee; Z99.2 Dependence on renal dialysis; Z82.49 Family history of ischemic heart disease and other diseases of the circulatory system; Z79.4 Long term (current) use of insulin
CPT/HCPCS: 36415; 71045; 80048; 80053; 82010; 82962; 83605; 83735; 84100; 84484; 85025; 85027; 86705; 86706; 86709; 86803; 87340; 87426; 90935; 93005; 93971; 99291; G0378; J0885; J1200; J1644; J1650; J1815; J2405; J2765; J2997; J3490; Q0163

== ENCOUNTER 2022-06-16 10:31 | Inpatient (IN) | payer MEDICARE, MEDICAID ==
[~2022-06-16] VITALS: Ht 190.5 cm; Wt 160.1 kg
[~2022-06-16 10:31] MED LIST changes: +AMLO10TA80 PO; +ATOR20TA65 PO; +BENZ100C86 PO; +CALC300T4 PO; +CYCL5TAB PO; +DIPH25TA62 PO; +FLUT15.844 BOTHNSTRLS; +FURO40TA5 PO; +INSNOV SUBCUT; +INSU100I24 SQ; +METO25TA6 PO; +PANT40TA51 PO; +TORS100T16 PO
[2022-06-16] MEDS ORDERED: ACETAMINOPHEN 325MG TABLET PO STA (11:06)
[2022-06-16] MEDS ORDERED: PIPERACILLIN/TAZ 3.375G PREMIX 50 ML IV ONE (11:15)
[2022-06-16] MEDS ORDERED: VANCOMYCIN 1G PREMIX 200 ML IV ONE (11:15)
[2022-06-16 11:42] LABS: CHLORIDE 105 mEq/L (98-107)
[2022-06-16] MEDS ORDERED: INSULIN REGULAR (HUMULIN R) 300UNITS/3ML VIAL SUBCUT NR (12:15)
[2022-06-16] MEDS ORDERED: ONDANSETRON 4MG ODT PO ONE (12:30)
[2022-06-16] MEDS ORDERED: SODIUM BICARBONATE 8.4% 1 MEQ/ML 50ML SYR IV ONE (13:30)
[2022-06-16] MEDS ORDERED: DIPHENHYDRAMINE 50MG/ML VIAL IV ONE (14:00)
[2022-06-16 14:09] LABS: MEAN CORPUSCULAR HEMOGLOBIN 29.1 pg (28.0-32.0); MEAN CORPUSCULAR VOLUME 90.7 fL (80.0-94.0); MEAN PLATELET VOLUME 9.6 fl (7.4-10.4); PLATELET 160 x1000/uL (130-400); RED BLOOD CELL COUNT 2.75 mill/uL (4.7-6.1); RED CELL DISTRIBUTION WIDTH 15.3 % (11.6-14.6)
[2022-06-16 14:18] LABS: PROTHROMBIN TIME 10.7 sec (9.6-11.0)
[2022-06-16 14:24] LABS: CLARITY URINE CLOUDY (CLEAR); COLOR URINE YELLOW (YELLOW); KETONES URINE NEGATIVE (NEGATIVE); LEUKOCYTE ESTERASE URINE 1+ (NEGATIVE); NITRITE URINE NEGATIVE (NEGATIVE); OCCULT BLOOD URINE TRACE (NEGATIVE); PH URINE 5.5 (4.5-8.0); PROTEIN URINE 4+ (NEGATIVE); SPECIFIC GRAVITY URINE 1.017 (1.005-1.030); UROBILINOGEN URINE 0.2 E.U./dL (0.2-1.0)
[2022-06-16 14:35] LABS: PLATELET ESTIMATE NORMAL
[2022-06-16] MEDS ORDERED: SODIUM BICARBONATE 8.4% 1 MEQ/ML 50ML SYR IV NR (15:30)
[2022-06-16] MEDS ORDERED: HYDROCODONE/ACETAMINOPHEN 10/325MG TABLET PO PRN (15:45)
[2022-06-16] MEDS ORDERED: VANCOMYCIN 1G PREMIX 200 ML IV NR (15:45)
[2022-06-16] MEDS ORDERED: HYDRALAZINE 20MG/ML VIAL IV PRN (15:45)
[2022-06-16] MEDS ORDERED: DEXTROSE 50% WATER 50ML SYRINGE IV PRN (15:45)
[2022-06-16] MEDS ORDERED: ACETAMINOPHEN 325MG TABLET PO PRN ×2 (15:45)
[2022-06-16] MEDS ORDERED: CLONIDINE 0.1MG TABLET PO PRN (15:45)
[2022-06-16] MEDS ORDERED: ONDANSETRON HCL 4MG/2ML INJ IV PRN (15:45)
[2022-06-16] MEDS ORDERED: NALOXONE HCL 0.4MG/ML VIAL IV PRN (16:00)
[2022-06-16] MEDS ORDERED: MEROPENEM 500 MG in SODIUM CHLORIDE 0.9% 50 ML IV SCH (17:00)
[2022-06-16] MEDS: BLOOD SUGAR DIAGNOSTIC STRIP TEST SCH ×2 (17:42→21:12)
[2022-06-16 18:20] VITALS: BP 127/53
[2022-06-16] MEDS: INSULIN LISPRO 100 UNITS/ML SUBCUT SCH ×2 (21:00→21:15)
[2022-06-16] MEDS: METOPROLOL TARTRATE 25MG TABLET PO SCH (21:12)
[2022-06-16] MEDS: ATORVASTATIN CALCIUM 40MG TABLET PO SCH (21:12)
[2022-06-16] MEDS: INSULIN GLARGINE 100 UNITS/ML SUBCUT SCH (21:14)
[2022-06-16] MEDS: DIPHENHYDRAMINE 50MG/ML VIAL IV PRN (21:20)
[2022-06-16] MEDS: SODIUM CHLORIDE 0.9% INJ 3ML FLUSH IVF SCH (22:00)
[2022-06-16] MEDS ORDERED: GABAPENTIN 100MG CAPSULE PO SCH (22:00)
[2022-06-16 22:14] VITALS: BP 146/69
[2022-06-17] VITALS: BP 137/62
[2022-06-17] MEDS: DIPHENHYDRAMINE 50MG/ML VIAL IV PRN ×2 (03:22→15:00)
[2022-06-17 04:00] VITALS: BP 125/72
[2022-06-17] MEDS: HYDROCODONE/ACETAMINOPHEN 10/325MG TABLET PO PRN ×2 (04:40→13:44)
[2022-06-17] MEDS: BLOOD SUGAR DIAGNOSTIC STRIP TEST SCH ×4 (05:35→21:31)
[2022-06-17] MEDS: SODIUM CHLORIDE 0.9% INJ 3ML FLUSH IVF SCH ×3 (06:00→21:32)
[2022-06-17] MEDS: GABAPENTIN 100MG CAPSULE PO SCH ×4 (06:00→21:28)
[2022-06-17] MEDS: INSULIN LISPRO 100 UNITS/ML SUBCUT SCH ×4 (06:17→21:31)
[2022-06-17 08:00] VITALS: BP 123/64
[2022-06-17] MEDS: AMLODIPINE 10MG TABLET PO SCH (09:00)
[2022-06-17] MEDS: METOPROLOL TARTRATE 25MG TABLET PO SCH ×2 (09:00→21:28)
[2022-06-17] MEDS ORDERED: MEROPENEM 500MG in NORMAL SALINE 50ML IV SCH (09:00)
[2022-06-17] MEDS: LISINOPRIL 20MG TABLET PO SCH (09:00)
[2022-06-17] MEDS: FOLIC ACID/VITAMIN B COMP W-C TABLET PO SCH (09:43)
[2022-06-17] MEDS: INSULIN GLARGINE 100 UNITS/ML SUBCUT SCH ×2 (10:59→21:29)
[2022-06-17 12:00] VITALS: BP 142/58
[2022-06-17 15:44] LABS: BASOPHILS % 0.3 % (0.0-2.0); EOSINOPHILS % 3.4 % (0.0-5.0); HEMATOCRIT. 26.1 % (42.0-52.0); HEMOGLOBIN. 8.5 g/dL (14.0-18.0); LYMPHOCYTES % 11.4 % (20.0-50.0); MEAN CORPUSCULAR HEMOGLOBIN 29.4 pg (28.0-32.0); MEAN CORPUSCULAR VOLUME 90.5 fL (80.0-94.0); MEAN PLATELET VOLUME 9.6 fl (7.4-10.4); MONOCYTES % 8.2 % (2.0-8.0); NEUTROPHILS % 76.7 % (40.0-76.0); PLATELET 179 x1000/uL (130-400); RED BLOOD CELL COUNT 2.88 mill/uL (4.7-6.1); RED CELL DISTRIBUTION WIDTH 15.3 % (11.6-14.6)
[2022-06-17 16:00] VITALS: BP 139/76
[2022-06-17 16:26] LABS: HEPATITIS B SURFACE ANTIGEN NEGATIVE
[2022-06-17 20:00] VITALS: BP 145/92
[2022-06-17] MEDS: ATORVASTATIN CALCIUM 40MG TABLET PO SCH (21:28)
[2022-06-18] VITALS (11 sets, daily range): BP systolic 118–161; BP diastolic 48–96
[2022-06-18] MEDS: DIPHENHYDRAMINE 50MG/ML VIAL IV PRN ×3 (00:24→16:15)
[2022-06-18 05:46] LABS: BASOPHILS % 0.3 % (0.0-2.0); EOSINOPHILS % 5.1 % (0.0-5.0); HEMATOCRIT. 25.2 % (42.0-52.0); HEMOGLOBIN. 8.3 g/dL (14.0-18.0); LYMPHOCYTES % 16.8 % (20.0-50.0); MEAN CORPUSCULAR HEMOGLOBIN 29.5 pg (28.0-32.0); MEAN CORPUSCULAR VOLUME 90.2 fL (80.0-94.0); MEAN PLATELET VOLUME 10.1 fl (7.4-10.4); MONOCYTES % 10.6 % (2.0-8.0); NEUTROPHILS % 67.2 % (40.0-76.0); PLATELET 171 x1000/uL (130-400); RED CELL DISTRIBUTION WIDTH 15.2 % (11.6-14.6)
[2022-06-18] MEDS: GABAPENTIN 100MG CAPSULE PO SCH ×2 (05:48→14:00)
[2022-06-18] MEDS: SODIUM CHLORIDE 0.9% INJ 3ML FLUSH IVF SCH ×2 (05:53→14:20)
[2022-06-18] MEDS: INSULIN LISPRO 100 UNITS/ML SUBCUT SCH ×3 (05:53→18:17)
[2022-06-18] MEDS: BLOOD SUGAR DIAGNOSTIC STRIP TEST SCH ×3 (05:53→17:01)
[2022-06-18] MEDS: METOPROLOL TARTRATE 25MG TABLET PO SCH (09:00)
[2022-06-18] MEDS: LISINOPRIL 20MG TABLET PO SCH (09:00)
[2022-06-18] MEDS: AMLODIPINE 10MG TABLET PO SCH (09:00)
[2022-06-18] MEDS ORDERED: INSULIN GLARGINE 100 UNITS/ML SUBCUT SCH (10:00)
[2022-06-18] MEDS ORDERED: ALTEPLASE 2MG/VIAL ITC NR (11:00)
[2022-06-18] MEDS ORDERED: VANCOMYCIN 1G PREMIX 200 ML IV SCH (12:00)
[2022-06-18] MEDS: HYDROCODONE/ACETAMINOPHEN 10/325MG TABLET PO PRN (12:23)
[2022-06-18] MEDS: FOLIC ACID/VITAMIN B COMP W-C TABLET PO SCH (13:24)
[2022-06-18] MEDS ORDERED: GABAPENTIN 300MG CAPSULE PO SCH (16:51)
[2022-06-18] MEDS ORDERED: EPOETIN ALFA-EPBX 4,000 UNIT/ML VIAL SUBCUT NR (21:00)
== END 2022-06-18 20:15 | disposition home or self-care (01) | DRG 871 ==
LOC: ER 10:40 → 7EST 12:45 → EDBEDREQSVC 17:26 → ENRESERV 17:54
PROVIDERS: ADMIT Internal Medicine; ATTEND Internal Medicine
PROC: 05HY33Z Insertion of Infusion Device into Upper Vein, Percutaneous Approach (ICD-10-PCS; principal; 2022-06-16)
PROC: B54NZZA Ultrasonography of Left Upper Extremity Veins, Guidance (ICD-10-PCS; 2022-06-16)
PROC: 5A1D70Z Performance of Urinary Filtration, Intermittent, Less than 6 Hours Per Day (ICD-10-PCS; 2022-06-18)
DX: A41.9 Sepsis, unspecified organism (principal); N18.6 End stage renal disease; I12.0 Hypertensive chronic kidney disease with stage 5 chronic kidney disease or end stage renal disease; E11.22 Type 2 diabetes mellitus with diabetic chronic kidney disease; E11.51 Type 2 diabetes mellitus with diabetic peripheral angiopathy without gangrene; E11.65 Type 2 diabetes mellitus with hyperglycemia; D63.1 Anemia in chronic kidney disease; E66.01 Morbid (severe) obesity due to excess calories; E11.649 Type 2 diabetes mellitus with hypoglycemia without coma; Z99.2 Dependence on renal dialysis; E78.00 Pure hypercholesterolemia, unspecified; E87.5 Hyperkalemia; K52.9 Noninfective gastroenteritis and colitis, unspecified; Z89.511 Acquired absence of right leg below knee; Z89.512 Acquired absence of left leg below knee
CPT/HCPCS: 36415; 36573; 71045; 80048; 80053; 80202; 81003; 82962; 83605; 84145; 84484; 85025; 86705; 86709; 86803; 87340; 90935; 93005; 93306; 99291; C1725; J0885; J1200; J1815; J2185; J2543; J2997; J3370; J3490; J7050; Q0162